=== PATIENT | male | born 1940 | race Caucasian/White ===

== ENCOUNTER 2017-07-31 09:43 | Emergency (ER) | payer MEDICARE, MEDICAID ==
[~2017-07-31] VITALS: Ht 170.2 cm; Wt 70.0 kg
[2017-07-31] MEDS ORDERED: ONDANSETRON HCL 4MG/2ML VIAL IV STA (10:29)
[2017-07-31] MEDS ORDERED: MORPHINE SULFATE 4 MG/ML CPJ (NOT FOR IM USE) IV STA (10:29)
[2017-07-31 11:07] LABS: BASOPHILS % 0.4 % (0.0-2.0); EOSINOPHILS % 0.1 % (0.0-5.0); HEMATOCRIT. 44.1 % (42.0-52.0); HEMOGLOBIN. 14.9 g/dL (14.0-18.0); LYMPHOCYTES % 8.6 % (20.0-50.0); MEAN CORPUSCULAR HEMOGLOBIN 31.8 pg (28.0-32.0); MEAN CORPUSCULAR VOLUME 94.5 fL (80.0-94.0); MEAN PLATELET VOLUME 7.6 fl (7.4-10.4); MONOCYTES % 3.4 % (2.0-8.0); NEUTROPHILS % 87.5 % (40.0-76.0); PLATELET 195 x1000/uL (130-400); RED BLOOD CELL COUNT 4.67 mill/uL (4.7-6.1); RED CELL DISTRIBUTION WIDTH 13.8 % (11.6-14.6)
[2017-07-31] MEDS ORDERED: IOHEXOL-350 100 ML BOTTLE ONE (11:13)
[2017-07-31] MEDS ORDERED: SODIUM CHLORIDE 0.9% 10ML VIAL ONE (11:13)
[2017-07-31 11:15] LABS: CHLORIDE 105 mEq/L (98-107)
[2017-07-31 11:19] LABS: INR 1.5; PROTHROMBIN TIME 15.9 sec (9.4-11.6)
[2017-07-31 11:24] LABS: CARBON DIOXIDE 26 mEq/L (21-32)
[2017-07-31] MEDS ORDERED: ONDANSETRON HCL 4MG/2ML VIAL IV ONE (12:30)
[2017-07-31 16:03] LABS: CLARITY URINE CLOUDY (CLEAR); COLOR URINE YELLOW (YELLOW); GLUCOSE URINE NEGATIVE (NEGATIVE); KETONES URINE 3+ (NEGATIVE); LEUKOCYTE ESTERASE URINE NEGATIVE (NEGATIVE); NITRITE URINE NEGATIVE (NEGATIVE); OCCULT BLOOD URINE TRACE (NEGATIVE); PROTEIN URINE 1+ (NEGATIVE); SPECIFIC GRAVITY URINE 1.035 (1.005-1.030); UROBILINOGEN URINE 0.2 E.U./dL (0.2-1.0)
[2017-07-31] MEDS ORDERED: HYDROCODONE/ACETAMINOPHEN 5/325MG TABLET PO ONE (17:15)
[2017-07-31 18:30] VITALS: BP 142/98
[2017-07-31] MEDS: PROMETHAZINE HCL 25MG TABLET PO PRN (19:35)
== END 2017-07-31 19:44 | disposition home or self-care (01) ==
LOC: ER 10:20
DX: R10.31 Right lower quadrant pain (principal); R11.2 Nausea with vomiting, unspecified; R19.7 Diarrhea, unspecified; I10 Essential (primary) hypertension; E11.9 Type 2 diabetes mellitus without complications; Z88.6 Allergy status to analgesic agent
CPT/HCPCS: 36415; 74177; 80053; 81001; 83690; 85025; 85610; 96374; 96375; 96376; 99285; A4216; J2270; J2405; J7030; Q9967

== ENCOUNTER 2019-02-10 11:48 | Inpatient (IN) | payer MEDICARE, MEDICAID ==
[~2019-02-10] VITALS: Ht 157.5 cm; Wt 84.8 kg
[2019-02-10 12:06] VITALS: BP 130/79
[2019-02-10] MEDS ORDERED: [UNRECOGNIZED DRUG - CODE] MC (12:18)
[2019-02-10] MEDS ORDERED: LIDO700A30 TP (12:18)
[2019-02-10] MEDS ORDERED: SENN-170 MT (12:18)
[2019-02-10] MEDS ORDERED: RIVA1TAB PO (12:18)
[2019-02-10] MEDS ORDERED: GABA-529 MT (12:18)
[2019-02-10] MEDS ORDERED: TAMS0.4C31 MT (12:18)
[2019-02-10] MEDS ORDERED: [UNRECOGNIZED DRUG - CODE] SL (12:18)
[2019-02-10] MEDS ORDERED: FINA1TAB18 MT (12:18)
[2019-02-10] MEDS ORDERED: METF-815 MT (12:18)
[2019-02-10] MEDS ORDERED: ACET-2178 MT (12:18)
[2019-02-10] MEDS ORDERED: ASCO125T PO (12:18)
[2019-02-10] MEDS ORDERED: PANT20TA3 MT (12:18)
[2019-02-10] MEDS ORDERED: CYAN500T47 MT (12:18)
[2019-02-10] MEDS ORDERED: BENZ0.5T3 MT (12:18)
[2019-02-10 12:26] VITALS: BP 129/76
[2019-02-10] MEDS ORDERED: IPRATROPIUM/ALBUTEROL 0.5-3(2.5)MG/3ML NEB INH PRN (13:00)
[2019-02-10] MEDS ORDERED: ACETAMINOPHEN 650MG/20.3ML UDC GT PRN (13:00)
[2019-02-10] MEDS ORDERED: NA PHOS,M-B/NA PHOS,DI-BA ENEMA 118ML PR PRN (13:00)
[2019-02-10] MEDS ORDERED: DEXTROSE 50% WATER 50ML SYRINGE IV PRN (13:00)
[2019-02-10] MEDS ORDERED: DIPHENHYDRAMINE 50MG/ML VIAL IV PRN (13:00)
[2019-02-10] MEDS ORDERED: ACETAMINOPHEN 650MG SUPP PR PRN (13:00)
[2019-02-10] MEDS ORDERED: MAGNESIUM/ALUMINUM HYDROXIDE/SIMETHICONE 30ML UDC PO PRN (13:00)
[2019-02-10] MEDS ORDERED: CLONIDINE 0.1MG TABLET PO PRN (13:00)
[2019-02-10] MEDS ORDERED: ONDANSETRON HCL 4MG/2ML INJ IV PRN (13:00)
[2019-02-10 13:20] LABS: BASOPHILS % 0.8 % (0.0-2.0); EOSINOPHILS % 3.1 % (0.0-5.0); HEMATOCRIT. 42.5 % (42.0-52.0); HEMOGLOBIN. 14.9 g/dL (14.0-18.0); LYMPHOCYTES % 22.7 % (20.0-50.0); MEAN CORPUSCULAR HEMOGLOBIN 33.9 pg (28.0-32.0); MEAN CORPUSCULAR VOLUME 96.8 fL (80.0-94.0); MEAN PLATELET VOLUME 7.2 fl (7.4-10.4); MONOCYTES % 9.3 % (2.0-8.0); NEUTROPHILS % 64.1 % (40.0-76.0); PLATELET 226 x1000/uL (130-400); RED BLOOD CELL COUNT 4.39 mill/uL (4.7-6.1); RED CELL DISTRIBUTION WIDTH 13.2 % (11.6-14.6)
[2019-02-10 13:28] LABS: CHLORIDE 108 mEq/L (98-107)
[2019-02-10] MEDS: FINASTERIDE 5MG TABLET PO SCH (14:34)
[2019-02-10] MEDS: PANTOPRAZOLE 40MG DR TABLET PO SCH (14:34)
[2019-02-10] MEDS: TAMSULOSIN HCL 0.4MG SR CAPSULE PO SCH (14:34)
[2019-02-10] MEDS: BENZTROPINE MESYLATE 0.5MG TABLET PO SCH ×2 (14:35→17:36)
[2019-02-10] MEDS: SODIUM CHLORIDE 0.9% INJ 3ML FLUSH IVF SCH ×2 (14:35→20:11)
[2019-02-10] MEDS: SENNOSIDES 8.6MG TABLET PO SCH ×2 (14:35→17:36)
[2019-02-10 15:42] VITALS: BP 142/64
[2019-02-10] MEDS: BLOOD SUGAR DIAGNOSTIC STRIP TEST SCH ×2 (16:45→20:51)
[2019-02-10] MEDS: INSULIN LISPRO 100 UNITS/ML SUBCUT SCH ×2 (16:45→20:52)
[2019-02-10] MEDS ORDERED: RIVAROXABAN 20 MG TABLET PO SCH (17:00)
[2019-02-10 17:15] LABS: CLARITY URINE CLEAR (CLEAR); COLOR URINE YELLOW (YELLOW); KETONES URINE NEGATIVE (NEGATIVE); LEUKOCYTE ESTERASE URINE NEGATIVE (NEGATIVE); NITRITE URINE NEGATIVE (NEGATIVE); OCCULT BLOOD URINE NEGATIVE (NEGATIVE); PROTEIN URINE NEGATIVE (NEGATIVE); SPECIFIC GRAVITY URINE 1.015 (1.005-1.030); UROBILINOGEN URINE 0.2 E.U./dL (0.2-1.0)
[2019-02-10 17:31] LABS: *AMPHETAMINES SCREEN URINE NEGATIVE (NEGATIVE); *BARBITURATES SCREEN URINE NEGATIVE (NEGATIVE); *BENZODIAZEPINES SCREEN URINE NEGATIVE (NEGATIVE); *COCAINE SCREEN URINE NEGATIVE (NEGATIVE)
[2019-02-10 17:32] LABS: CANNABINOID URINE SCREEN NEGATIVE (NEGATIVE); METHADONE URINE SCREEN NEGATIVE (NEGATIVE); OPIATES URINE SCREEN NEGATIVE (NEGATIVE); PHENCYCLIDINE URINE SCREEN NEGATIVE (NEGATIVE)
[2019-02-10] MEDS ORDERED: METFORMIN HCL 500MG TABLET PO SCH (17:50)
[2019-02-10] MEDS: HYDROCODONE/ACETAMINOPHEN 5/325MG TABLET PO PRN (18:00)
[2019-02-10 20:00] VITALS: BP 106/71
[2019-02-10] MEDS: IPRATROPIUM/ALBUTEROL 0.5-3(2.5)MG/3ML NEB INH SCH (21:19)
[2019-02-11] VITALS: BP 110/70
[2019-02-11] MEDS: IPRATROPIUM/ALBUTEROL 0.5-3(2.5)MG/3ML NEB INH SCH ×4 (01:20→20:30)
[2019-02-11 04:00] VITALS: BP 94/59
[2019-02-11] MEDS: HYDROCODONE/ACETAMINOPHEN 5/325MG TABLET PO PRN (04:40)
[2019-02-11] MEDS: SODIUM CHLORIDE 0.9% INJ 3ML FLUSH IVF SCH ×3 (04:40→22:02)
[2019-02-11 06:16] LABS: BASOPHILS % 0.9 % (0.0-2.0); EOSINOPHILS % 2.7 % (0.0-5.0); HEMATOCRIT. 42.2 % (42.0-52.0); HEMOGLOBIN. 14.6 g/dL (14.0-18.0); LYMPHOCYTES % 24.8 % (20.0-50.0); MEAN CORPUSCULAR HEMOGLOBIN 33.7 pg (28.0-32.0); MEAN CORPUSCULAR VOLUME 97.7 fL (80.0-94.0); NEUTROPHILS % 61.6 % (40.0-76.0); PLATELET 202 x1000/uL (130-400); RED BLOOD CELL COUNT 4.32 mill/uL (4.7-6.1); RED CELL DISTRIBUTION WIDTH 13.7 % (11.6-14.6)
[2019-02-11 06:43] LABS: CHLORIDE 109 mEq/L (98-107)
[2019-02-11 06:57] LABS: LDL CHOLESTEROL 105 mg/dL (5-100)
[2019-02-11 06:59] LABS: HDL CHOLESTEROL 54 mg/dL (40-59)
[2019-02-11] MEDS: BLOOD SUGAR DIAGNOSTIC STRIP TEST SCH ×4 (07:20→20:04)
[2019-02-11] MEDS: PANTOPRAZOLE 40MG DR TABLET PO SCH (07:20)
[2019-02-11] MEDS: INSULIN LISPRO 100 UNITS/ML SUBCUT SCH ×4 (07:50→21:00)
[2019-02-11 08:00] VITALS: BP 119/64
[2019-02-11] MEDS: BENZTROPINE MESYLATE 0.5MG TABLET PO SCH ×2 (08:40→16:55)
[2019-02-11] MEDS: FINASTERIDE 5MG TABLET PO SCH (08:40)
[2019-02-11] MEDS: METFORMIN HCL 500MG TABLET PO SCH ×2 (08:40→16:55)
[2019-02-11] MEDS: TAMSULOSIN HCL 0.4MG SR CAPSULE PO SCH (08:41)
[2019-02-11] MEDS: SENNOSIDES 8.6MG TABLET PO SCH ×2 (08:41→16:54)
[2019-02-11 12:00] VITALS: BP 110/57
[2019-02-11 16:00] VITALS: BP 117/66
[2019-02-11] MEDS: RIVAROXABAN 20 MG TABLET PO SCH (16:55)
[2019-02-11] MEDS: ACETAMINOPHEN 325MG TABLET PO PRN (19:53)
[2019-02-11] MEDS: FUROSEMIDE 40MG/4ML VIAL IVP SCH (23:58)
[2019-02-12] VITALS: BP 112/68
[2019-02-12] MEDS: IPRATROPIUM/ALBUTEROL 0.5-3(2.5)MG/3ML NEB INH SCH ×3 (01:24→21:12)
[2019-02-12 04:00] VITALS: BP 112/66
[2019-02-12] MEDS: SODIUM CHLORIDE 0.9% INJ 3ML FLUSH IVF SCH ×3 (06:04→21:02)
[2019-02-12] MEDS: BLOOD SUGAR DIAGNOSTIC STRIP TEST SCH ×4 (06:11→20:00)
[2019-02-12] MEDS: ACETAMINOPHEN 325MG TABLET PO PRN (06:12)
[2019-02-12] MEDS: PANTOPRAZOLE 40MG DR TABLET PO SCH (06:12)
[2019-02-12] MEDS: INSULIN LISPRO 100 UNITS/ML SUBCUT SCH ×4 (06:24→20:02)
[2019-02-12 08:00] VITALS: BP 108/62
[2019-02-12] MEDS: SENNOSIDES 8.6MG TABLET PO SCH ×2 (08:41→17:37)
[2019-02-12] MEDS: METFORMIN HCL 500MG TABLET PO SCH ×2 (08:41→17:37)
[2019-02-12] MEDS: FUROSEMIDE 40MG/4ML VIAL IVP SCH (08:41)
[2019-02-12] MEDS: FINASTERIDE 5MG TABLET PO SCH (08:42)
[2019-02-12] MEDS: BENZTROPINE MESYLATE 0.5MG TABLET PO SCH ×2 (08:42→17:37)
[2019-02-12] MEDS: TAMSULOSIN HCL 0.4MG SR CAPSULE PO SCH (08:45)
[2019-02-12] MEDS ORDERED: MEDICATION NOT ON FORMULARY EA (Gabapentin 1 CAP) MT SCH (11:15)
[2019-02-12 12:00] VITALS: BP 109/64
[2019-02-12] MEDS: GABAPENTIN 100MG CAPSULE PO SCH ×2 (12:31→17:40)
[2019-02-12 12:40] LABS: BASOPHILS % 0.9 % (0.0-2.0); EOSINOPHILS % 1.8 % (0.0-5.0); LYMPHOCYTES % 18.5 % (20.0-50.0); MEAN CORPUSCULAR HEMOGLOBIN 33.9 pg (28.0-32.0); MEAN CORPUSCULAR VOLUME 97.3 fL (80.0-94.0); MONOCYTES % 11.1 % (2.0-8.0); NEUTROPHILS % 67.7 % (40.0-76.0); PLATELET 225 x1000/uL (130-400); RED BLOOD CELL COUNT 4.42 mill/uL (4.7-6.1); RED CELL DISTRIBUTION WIDTH 13.6 % (11.6-14.6)
[2019-02-12 12:47] LABS: CHLORIDE 109 mEq/L (98-107)
[2019-02-12 16:00] VITALS: BP 103/67
[2019-02-12] MEDS: RIVAROXABAN 20 MG TABLET PO SCH (17:37)
[2019-02-12 20:00] VITALS: BP 105/65
[2019-02-13] VITALS (7 sets, daily range): BP systolic 101–113; BP diastolic 59–74
[2019-02-13] MEDS: IPRATROPIUM/ALBUTEROL 0.5-3(2.5)MG/3ML NEB INH SCH ×4 (01:28→20:02)
[2019-02-13] MEDS: SODIUM CHLORIDE 0.9% INJ 3ML FLUSH IVF SCH ×3 (06:00→21:54)
[2019-02-13] MEDS: ACETAMINOPHEN 325MG TABLET PO PRN (06:17)
[2019-02-13] MEDS: BLOOD SUGAR DIAGNOSTIC STRIP TEST SCH ×4 (06:48→21:54)
[2019-02-13] MEDS: INSULIN LISPRO 100 UNITS/ML SUBCUT SCH ×4 (06:48→21:00)
[2019-02-13] MEDS ORDERED: FURO-151 MT (07:48)
[2019-02-13] MEDS: FUROSEMIDE 40MG/4ML VIAL IVP SCH (09:00)
[2019-02-13] MEDS ORDERED: FAMOTIDINE 20MG TABLET PO SCH (09:00)
[2019-02-13] MEDS: BENZTROPINE MESYLATE 0.5MG TABLET PO SCH ×2 (09:18→18:29)
[2019-02-13] MEDS: METFORMIN HCL 500MG TABLET PO SCH ×2 (09:19→18:29)
[2019-02-13] MEDS: TAMSULOSIN HCL 0.4MG SR CAPSULE PO SCH (09:20)
[2019-02-13] MEDS: SENNOSIDES 8.6MG TABLET PO SCH ×2 (09:20→18:29)
[2019-02-13] MEDS: GABAPENTIN 100MG CAPSULE PO SCH ×3 (09:20→18:29)
[2019-02-13] MEDS: FINASTERIDE 5MG TABLET PO SCH (09:33)
[2019-02-13 10:10] LABS: CHLORIDE 110 mEq/L (98-107)
[2019-02-13 10:13] LABS: BASOPHILS % 0.7 % (0.0-2.0); EOSINOPHILS % 2.7 % (0.0-5.0); HEMOGLOBIN. 14.9 g/dL (14.0-18.0); LYMPHOCYTES % 21.7 % (20.0-50.0); MEAN CORPUSCULAR HEMOGLOBIN 33.8 pg (28.0-32.0); MEAN CORPUSCULAR VOLUME 97.6 fL (80.0-94.0); MEAN PLATELET VOLUME 7.3 fl (7.4-10.4); MONOCYTES % 8.2 % (2.0-8.0); NEUTROPHILS % 66.7 % (40.0-76.0); PLATELET 217 x1000/uL (130-400); RED BLOOD CELL COUNT 4.41 mill/uL (4.7-6.1); RED CELL DISTRIBUTION WIDTH 13.5 % (11.6-14.6)
[2019-02-13] MEDS: RIVAROXABAN 20 MG TABLET PO SCH (18:29)
== END 2019-02-13 23:00 | DRG 292 ==
LOC: 6EST 11:48
PROVIDERS: ADMIT Family Medicine; ATTEND Family Medicine
DX: I11.0 Hypertensive heart disease with heart failure (principal); L97.929 Non-pressure chronic ulcer of unspecified part of left lower leg with unspecified severity; Z66 Do not resuscitate; E66.9 Obesity, unspecified; Z68.32 Body mass index [BMI] 32.0-32.9, adult; G20 Parkinson's disease; N40.0 Benign prostatic hyperplasia without lower urinary tract symptoms; Z74.01 Bed confinement status; I50.33 Acute on chronic diastolic (congestive) heart failure; E11.621 Type 2 diabetes mellitus with foot ulcer
CPT/HCPCS: 36415; 71045; 80061; 80305; 82962; 87804; 93306; 93970; 94640; 97162; 97530; J1940; J7620

== ENCOUNTER 2019-11-08 18:55 | Emergency (ER) | payer MEDICAID, MEDICARE ==
[~2019-11-08] VITALS: Ht 167.6 cm; Wt 91.0 kg
[~2019-11-08 18:55] MED LIST: ASCO125T PO; BENZ0.5T43 MT; CYAN500T47 MT; FINA1TAB18 MT; FURO-151 MT; GABA-529 MT; LIDO700A30 TP; METF-815 MT; PANT20TA3 MT; RIVA1TAB PO; SENN-170 MT; TAMS0.4C31 MT; TOPUD MT
[2019-11-08] MEDS ORDERED: CLOPIDOGREL 75MG TABLET PO ONE (19:15)
[2019-11-08 19:42] LABS: BASOPHILS % 1.1 % (0.0-2.0); EOSINOPHILS % 4.7 % (0.0-5.0); HEMATOCRIT. 42.8 % (42.0-52.0); HEMOGLOBIN. 14.5 g/dL (14.0-18.0); LYMPHOCYTES % 33.8 % (20.0-50.0); MEAN CORPUSCULAR HEMOGLOBIN 32.1 pg (28.0-32.0); MEAN CORPUSCULAR VOLUME 94.9 fL (80.0-94.0); MEAN PLATELET VOLUME 7.4 fl (7.4-10.4); MONOCYTES % 10.2 % (2.0-8.0); NEUTROPHILS % 50.2 % (40.0-76.0); PLATELET 212 x1000/uL (130-400); RED BLOOD CELL COUNT 4.51 mill/uL (4.7-6.1); RED CELL DISTRIBUTION WIDTH 13.8 % (11.6-14.6)
[2019-11-08 19:47] LABS: CHLORIDE 106 mEq/L (98-107)
[2019-11-08] MEDS ORDERED: FAMOTIDINE 20MG TABLET PO ONE (20:15)
[2019-11-08 22:33] VITALS: BP 147/87
== END 2019-11-08 22:34 | disposition home or self-care (01) ==
LOC: ER 18:55
DX: R53.1 Weakness (principal); I10 Essential (primary) hypertension; E11.9 Type 2 diabetes mellitus without complications; G20 Parkinson's disease; Z79.84 Long term (current) use of oral hypoglycemic drugs; Z88.6 Allergy status to analgesic agent
CPT/HCPCS: 36415; 71045; 80053; 83880; 84484; 85025; 93005; 99284

== ENCOUNTER 2020-12-30 14:49 | Inpatient (IN) | payer MEDICARE, MEDICAID ==
[~2020-12-30] VITALS: Ht 152.4 cm; Wt 73.9 kg
[~2020-12-30 14:49] MED LIST changes: -METF-815 MT; +METF-873 MT; +PANT20TA17 MT; -PANT20TA3 MT; -SENN-170 MT; +SENN-257 MT
[2020-12-30] MEDS ORDERED: VANCOMYCIN 1 G PREMIX 200 ML IV ONE (15:45)
[2020-12-30] MEDS ORDERED: SODIUM CHLORIDE 0.9% 1000ML BAG (SEPSIS BOLUS) IV ONE ×2 (15:45→20:00)
[2020-12-30] MEDS ORDERED: PIPERACILLIN/TAZ 3.375G PREMIX 50 ML IV ONE (15:45)
[2020-12-30 15:59] LABS: CHLORIDE 105 mEq/L (98-107)
[2020-12-30 16:05] LABS: ETHANOL BLOOD < 10 mg/dL
[2020-12-30 16:09] LABS: CREATINE KINASE 613 IU/L (39-308)
[2020-12-30 16:12] LABS: D-DIMER 0.21 mg/L FEU (<0.50); INR 1.1; PROTHROMBIN TIME 11.4 sec (9.6-11.0)
[2020-12-30 16:32] LABS: BASOPHILS % 0.6 % (0.0-2.0); EOSINOPHILS % 0.2 % (0.0-5.0); HEMATOCRIT. 49.6 % (42.0-52.0); HEMOGLOBIN. 16.5 g/dL (14.0-18.0); LYMPHOCYTES % 10.3 % (20.0-50.0); MEAN CORPUSCULAR HEMOGLOBIN 32.5 pg (28.0-32.0); MEAN CORPUSCULAR VOLUME 98.1 fL (80.0-94.0); MEAN PLATELET VOLUME 9.3 fl (7.4-10.4); MONOCYTES % 6.7 % (2.0-8.0); NEUTROPHILS % 82.2 % (40.0-76.0); PLATELET 236 x1000/uL (130-400); RED BLOOD CELL COUNT 5.06 mill/uL (4.7-6.1); RED CELL DISTRIBUTION WIDTH 13.5 % (11.6-14.6)
[2020-12-30 16:40] LABS: CLARITY URINE CLEAR (CLEAR); COLOR URINE YELLOW (YELLOW); KETONES URINE 1+ (NEGATIVE); LEUKOCYTE ESTERASE URINE NEGATIVE (NEGATIVE); NITRITE URINE NEGATIVE (NEGATIVE); OCCULT BLOOD URINE 2+ (NEGATIVE); PROTEIN URINE TRACE (NEGATIVE); SPECIFIC GRAVITY URINE 1.035 (1.005-1.030); UROBILINOGEN URINE 0.2 E.U./dL (0.2-1.0)
[2020-12-30 17:07] LABS: *BARBITURATES SCREEN URINE NEGATIVE (NEGATIVE); *BENZODIAZEPINES SCREEN URINE NEGATIVE (NEGATIVE); *COCAINE SCREEN URINE NEGATIVE (NEGATIVE); METHADONE URINE SCREEN NEGATIVE (NEGATIVE); OPIATES URINE SCREEN NEGATIVE (NEGATIVE)
[2020-12-30 17:08] LABS: CANNABINOID URINE SCREEN NEGATIVE (NEGATIVE); PHENCYCLIDINE URINE SCREEN NEGATIVE (NEGATIVE)
[2020-12-30 17:14] LABS: *AMPHETAMINES SCREEN URINE NEGATIVE (NEGATIVE)
[2020-12-30] MEDS ORDERED: SODIUM CHLORIDE 0.9% 1,000 ML IV ONE ×2 (18:00→20:00)
[2020-12-30] MEDS ORDERED: INSULIN REGULAR (HUMULIN R) 300UNITS/3ML VIAL SUBCUT ONE ×2 (18:45→19:15)
[2020-12-30] MEDS ORDERED: LEVOFLOXACIN 500MG PREMIX 100 ML IV NR (20:00)
[2020-12-30] MEDS ORDERED: ONDANSETRON HCL 4MG/2ML INJ IV PRN (20:00)
[2020-12-30] MEDS ORDERED: IPRATROPIUM/ALBUTEROL 0.5-3(2.5)MG/3ML NEB NEB PRN (20:00)
[2020-12-30] MEDS ORDERED: DOCUSATE SODIUM 100MG CAPSULE PO PRN (20:00)
[2020-12-30] MEDS ORDERED: NITROGLYCERIN 0.4MG TABLET SL SL PRN (20:00)
[2020-12-30] MEDS ORDERED: CLONIDINE 0.1MG TABLET PO PRN (20:00)
[2020-12-30] MEDS ORDERED: ENOXAPARIN 40MG/0.4ML SYR SUBCUT SCH (20:00)
[2020-12-30] MEDS ORDERED: DEXTROSE 50% WATER 50ML SYRINGE IV PRN (20:00)
[2020-12-30] MEDS ORDERED: MAGNESIUM/ALUMINUM HYDROXIDE/SIMETHICONE 30ML UDC PO PRN (20:00)
[2020-12-30] MEDS ORDERED: ACETAMINOPHEN 325MG TABLET PO PRN ×2 (20:00)
[2020-12-30] MEDS ORDERED: DILTIAZEM HCL 5MG/ML 5ML VIAL IV NR (20:00)
[2020-12-30] MEDS ORDERED: GUAIFENESIN 200MG/10ML SUGAR FREE UDC PO PRN (20:00)
[2020-12-30] MEDS ORDERED: KETOROLAC 15MG/ML VIAL IV PRN (20:00)
[2020-12-30] MEDS ORDERED: SODIUM CHLORIDE 0.9% IV SCH (20:45)
[2020-12-30] MEDS: BLOOD SUGAR DIAGNOSTIC STRIP TEST SCH (20:58)
[2020-12-30] MEDS ORDERED: ZOLPIDEM TARTRATE 5MG TABLET PO PRN (21:00)
[2020-12-30] MEDS ORDERED: ENOXAPARIN 30MG/0.3ML SYR SUBCUT SCH (21:00)
[2020-12-30] MEDS: INSULIN LISPRO 100 UNITS/ML SUBCUT SCH (21:12)
[2020-12-30] MEDS: FAMOTIDINE 20MG TABLET PO SCH (21:12)
[2020-12-30] MEDS: ASCORBIC ACID 500 MG TABLET PO SCH (21:12)
[2020-12-30 21:17] LABS: VITAMIN B12 SERUM 863 pg/mL (211-911)
[2020-12-30 21:25] LABS: FOLIC ACID (FOLATE) SERUM > 20.00 ng/mL (>5.38)
[2020-12-30] MEDS ORDERED: PIPERACILLIN/TAZ 3.375G PREMIX 50 ML IV SCH (22:00)
[2020-12-30] MEDS: INSULIN GLARGINE UD 100 UNITS/ML SYR SUBCUT SCH (22:29)
[2020-12-30] MEDS: SODIUM CHLORIDE 0.9% 1,000 ML IV SCH (22:29)
[2020-12-30] MEDS: DILTIAZEM HCL 30MG TABLET PO SCH (23:52)
[2020-12-31 00:31] VITALS: BP 119/70
[2020-12-31 04:00] VITALS: BP 119/66
[2020-12-31] MEDS: DILTIAZEM HCL 30MG TABLET PO SCH ×3 (05:09→17:55)
[2020-12-31] MEDS: SODIUM CHLORIDE 0.9% 1,000 ML IV SCH ×2 (05:10→17:42)
[2020-12-31] MEDS ORDERED: PIPERACILLIN/TAZOBACTAM 3.375 G in DEXT 5% WATER 100 ML IV SCH (06:00)
[2020-12-31] MEDS: BLOOD SUGAR DIAGNOSTIC STRIP TEST SCH ×4 (06:41→21:25)
[2020-12-31] MEDS: INSULIN LISPRO 100 UNITS/ML SUBCUT SCH ×7 (07:40→21:00)
[2020-12-31 08:00] VITALS: BP 141/63
[2020-12-31] MEDS: CHOLECALCIFEROL (D3) 1000 UNIT TABLET PO SCH (08:55)
[2020-12-31] MEDS: ASCORBIC ACID 500 MG TABLET PO SCH ×2 (08:55→21:00)
[2020-12-31] MEDS: ZINC SULFATE 220 MG ( 50 ) CAPSULE PO SCH (08:56)
[2020-12-31] MEDS ORDERED: ASPIRIN 325MG EC TABLET PO SCH (09:00)
[2020-12-31 11:29] LABS: BASOPHILS % 0.7 % (0.0-2.0); EOSINOPHILS % 2.4 % (0.0-5.0); HEMATOCRIT. 41.8 % (42.0-52.0); HEMOGLOBIN. 14.2 g/dL (14.0-18.0); LYMPHOCYTES % 20.5 % (20.0-50.0); MEAN CORPUSCULAR HEMOGLOBIN 32.4 pg (28.0-32.0); MEAN CORPUSCULAR VOLUME 95.5 fL (80.0-94.0); MEAN PLATELET VOLUME 8.5 fl (7.4-10.4); MONOCYTES % 8.9 % (2.0-8.0); NEUTROPHILS % 67.5 % (40.0-76.0); PLATELET 187 x1000/uL (130-400); RED BLOOD CELL COUNT 4.38 mill/uL (4.7-6.1); RED CELL DISTRIBUTION WIDTH 13.3 % (11.6-14.6)
[2020-12-31 11:51] LABS: CHLORIDE 123 mEq/L (98-107)
[2020-12-31 11:56] LABS: PHOSPHORUS 1.6 mg/dL (2.5-4.9)
[2020-12-31 11:59] LABS: CREATINE KINASE 814 IU/L (39-308)
[2020-12-31 12:00] VITALS: BP 126/81
[2020-12-31] MEDS: PIPERACILLIN/TAZOBACTAM 3.375 G in DEXT 5% WATER 100 ML IV SCH ×2 (12:58→17:55)
[2020-12-31] MEDS: VANCOMYCIN 1 G PREMIX 200 ML IV SCH (13:57)
[2020-12-31] MEDS ORDERED: VANCOMYCIN 750 MG PREMIX 150 ML IV SCH ×2 (14:00)
[2020-12-31 16:00] VITALS: BP 154/87
[2020-12-31] MEDS: LEVOFLOXACIN 750MG PREMIX 150 ML IV SCH (17:42)
[2020-12-31] MEDS: FAMOTIDINE 20MG TABLET PO SCH (21:00)
[2020-12-31 21:04] VITALS: BP 139/79
[2020-12-31] MEDS: ENOXAPARIN 40MG/0.4ML SYR SUBCUT SCH (21:22)
[2020-12-31] MEDS: INSULIN GLARGINE UD 100 UNITS/ML SYR SUBCUT SCH (22:00)
[2021-01-01] MEDS: SODIUM CHLORIDE 0.9% 1,000 ML IV SCH (03:00)
[2021-01-01 05:00] VITALS: BP 145/82
[2021-01-01] MEDS: DILTIAZEM HCL 30MG TABLET PO SCH ×5 (06:00→23:36)
[2021-01-01] MEDS: PIPERACILLIN/TAZOBACTAM 3.375 G in DEXT 5% WATER 100 ML IV SCH ×4 (06:00→17:34)
[2021-01-01 06:56] LABS: BASOPHILS % 0.8 % (0.0-2.0); EOSINOPHILS % 3.6 % (0.0-5.0); HEMOGLOBIN. 13.8 g/dL (14.0-18.0); LYMPHOCYTES % 30.3 % (20.0-50.0); MEAN CORPUSCULAR HEMOGLOBIN 32.1 pg (28.0-32.0); MEAN CORPUSCULAR VOLUME 95.6 fL (80.0-94.0); MONOCYTES % 7.6 % (2.0-8.0); NEUTROPHILS % 57.7 % (40.0-76.0); PLATELET 169 x1000/uL (130-400); RED BLOOD CELL COUNT 4.29 mill/uL (4.7-6.1); RED CELL DISTRIBUTION WIDTH 13.4 % (11.6-14.6)
[2021-01-01 07:04] LABS: CHLORIDE 118 mEq/L (98-107)
[2021-01-01] MEDS: INSULIN LISPRO 100 UNITS/ML SUBCUT SCH ×7 (07:10→20:49)
[2021-01-01 07:21] LABS: PHOSPHORUS 1.7 mg/dL (2.5-4.9)
[2021-01-01] MEDS: BLOOD SUGAR DIAGNOSTIC STRIP TEST SCH ×4 (07:33→20:39)
[2021-01-01 08:00] VITALS: BP 137/81
[2021-01-01] MEDS: ASCORBIC ACID 500 MG TABLET PO SCH ×2 (08:36→20:38)
[2021-01-01] MEDS: ZINC SULFATE 220 MG ( 50 ) CAPSULE PO SCH (08:36)
[2021-01-01] MEDS: CHOLECALCIFEROL (D3) 1000 UNIT TABLET PO SCH (08:36)
[2021-01-01] MEDS ORDERED: LEVOFLOXACIN 500MG PREMIX 100 ML IV SCH (09:00)
[2021-01-01] MEDS: SODIUM CHLORIDE 0.45% 1,000 ML IV SCH ×2 (10:17→23:35)
[2021-01-01] MEDS: LEVOFLOXACIN 750MG PREMIX 150 ML IV SCH (10:21)
[2021-01-01 12:00] VITALS: BP 111/68
[2021-01-01] MEDS: VANCOMYCIN 1 G PREMIX 200 ML IV SCH (14:09)
[2021-01-01 16:00] VITALS: BP 110/71
[2021-01-01 20:00] VITALS: BP 127/70
[2021-01-01] MEDS: ENOXAPARIN 40MG/0.4ML SYR SUBCUT SCH (20:38)
[2021-01-01] MEDS: FAMOTIDINE 20MG TABLET PO SCH (20:44)
[2021-01-01 21:31] VITALS: BP 127/70
[2021-01-01] MEDS: INSULIN GLARGINE UD 100 UNITS/ML SYR SUBCUT SCH (23:34)
[2021-01-02] VITALS: BP 117/69
[2021-01-02] MEDS: PIPERACILLIN/TAZOBACTAM 3.375 G in DEXT 5% WATER 100 ML IV SCH ×4 (00:59→17:55)
[2021-01-02 01:28] VITALS: BP 117/69
[2021-01-02 04:00] VITALS: BP 131/73
[2021-01-02] MEDS: DILTIAZEM HCL 30MG TABLET PO SCH ×3 (05:30→17:43)
[2021-01-02] MEDS: INSULIN LISPRO 100 UNITS/ML SUBCUT SCH ×7 (05:32→20:21)
[2021-01-02] MEDS: BLOOD SUGAR DIAGNOSTIC STRIP TEST SCH ×4 (05:33→20:21)
[2021-01-02 07:29] LABS: CHLORIDE 111 mEq/L (98-107)
[2021-01-02] MEDS: ASCORBIC ACID 500 MG TABLET PO SCH ×2 (09:00→20:21)
[2021-01-02] MEDS: ZINC SULFATE 220 MG ( 50 ) CAPSULE PO SCH (09:00)
[2021-01-02] MEDS: CHOLECALCIFEROL (D3) 1000 UNIT TABLET PO SCH (09:00)
[2021-01-02] MEDS: SODIUM CHLORIDE 0.45% 1,000 ML IV SCH (13:01)
[2021-01-02] MEDS: VANCOMYCIN 1 G PREMIX 200 ML IV SCH (14:19)
[2021-01-02 16:00] VITALS: BP 138/82
[2021-01-02 20:00] VITALS: BP 142/72
[2021-01-02] MEDS: ENOXAPARIN 40MG/0.4ML SYR SUBCUT SCH (20:06)
[2021-01-02] MEDS: FAMOTIDINE 20MG TABLET PO SCH (20:20)
[2021-01-02] MEDS ORDERED: INSULIN GLARGINE UD 100 UNITS/ML SYR SUBCUT SCH (22:00)
[2021-01-03] VITALS: BP 124/78
[2021-01-03] MEDS: PIPERACILLIN/TAZOBACTAM 3.375 G in DEXT 5% WATER 100 ML IV SCH ×2 (00:20→05:22)
[2021-01-03] MEDS: VANCOMYCIN 1 G PREMIX 200 ML IV SCH (01:26)
[2021-01-03] MEDS: SODIUM CHLORIDE 0.45% 1,000 ML IV SCH (01:28)
[2021-01-03 04:00] VITALS: BP 101/69
[2021-01-03] MEDS: DILTIAZEM HCL 30MG TABLET PO SCH ×2 (05:20)
[2021-01-03] MEDS: INSULIN LISPRO 100 UNITS/ML SUBCUT SCH ×3 (05:21→12:10)
[2021-01-03] MEDS: BLOOD SUGAR DIAGNOSTIC STRIP TEST SCH ×2 (05:21→12:11)
[2021-01-03 08:00] VITALS: BP 104/65
[2021-01-03] MEDS: ZINC SULFATE 220 MG ( 50 ) CAPSULE PO SCH (09:25)
[2021-01-03] MEDS: CHOLECALCIFEROL (D3) 1000 UNIT TABLET PO SCH (09:25)
[2021-01-03] MEDS: ASCORBIC ACID 500 MG TABLET PO SCH (09:25)
[2021-01-03 10:07] VITALS: BP 104/65
[2021-01-03] MEDS ORDERED: LEVOFLOXACIN 250MG TABLET PO SCH (11:00)
[2021-01-03 12:00] VITALS: BP 135/69
== END 2021-01-03 12:15 | DRG 871 ==
LOC: ER 14:49 → 7WST 19:46 → SUPCPDRO 19:48 → EDBEDREQ 20:02 → EDBEDREQTM 20:02 → ENRESERV 21:16 → CANRESERV 21:16 → ENRESERV 22:41 → 8WST 12-31 10:44
PROVIDERS: ADMIT Internal Medicine; ATTEND Internal Medicine
DX: A41.9 Sepsis, unspecified organism (principal); E11.00 Type 2 diabetes mellitus with hyperosmolarity without nonketotic hyperglycemic-hyperosmolar coma (NKHHC); G92 Toxic encephalopathy; N17.0 Acute kidney failure with tubular necrosis; J18.9 Pneumonia, unspecified organism; R65.20 Severe sepsis without septic shock; I11.0 Hypertensive heart disease with heart failure; I48.91 Unspecified atrial fibrillation; G20 Parkinson's disease; Z86.16 Personal history of COVID-19; I50.9 Heart failure, unspecified; Z20.822 Contact with and (suspected) exposure to COVID-19; Y95 Nosocomial condition; N40.0 Benign prostatic hyperplasia without lower urinary tract symptoms; K21.9 Gastro-esophageal reflux disease without esophagitis; Z88.6 Allergy status to analgesic agent; Z79.899 Other long term (current) drug therapy
CPT/HCPCS: 36415; 71045; 80048; 80053; 80061; 80202; 80305; 80320; 81003; 82550; 82553; 82607; 82728; 82746; 82962; 83036; 83540; 83550; 83605; 83615; 83735; 83880; 84100; 84145; 84484; 85025; 85379; 85384; 86140; 86850; 86900; 93005; 93306; 93970; 99291; J1650; J1815; J1956; J2543; J3370; J3490; J7030; J7060; U0003; G0480

== ENCOUNTER 2022-06-16 00:10 | Inpatient (IN) | payer MEDICARE, MEDICAID ==
[~2022-06-16] VITALS: Ht 167.6 cm; Wt 80.3 kg
[2022-06-16] VITALS: BP 97/55
[2022-06-16 00:10] VITALS: BP 97/55
[2022-06-16] MEDS ORDERED: ONDANSETRON HCL 4MG TABLET PO PRN (01:15)
[2022-06-16] MEDS ORDERED: NALOXONE HCL 0.4 MG/ML 1ML VIAL IV PRN (01:15)
[2022-06-16] MEDS ORDERED: IPRATROPIUM/ALBUTEROL 0.5-3(2.5)MG/3ML NEB HHN PRN (01:15)
[2022-06-16] MEDS ORDERED: DEXTROSE 50% WATER 50ML SYRINGE IV PRN (01:30)
[2022-06-16] MEDS: BLOOD SUGAR DIAGNOSTIC STRIP TEST SCH ×4 (05:43→20:56)
[2022-06-16 06:19] LABS: CHLORIDE 101 mEq/L (98-107)
[2022-06-16 07:25] LABS: BASOPHILS % 0.7 % (0.0-2.0); EOSINOPHILS % 2.7 % (0.0-5.0); HEMOGLOBIN. 15.2 g/dL (14.0-18.0); LYMPHOCYTES % 25.3 % (20.0-50.0); MEAN CORPUSCULAR HEMOGLOBIN 32.2 pg (28.0-32.0); MEAN CORPUSCULAR VOLUME 93.4 fL (80.0-94.0); MEAN PLATELET VOLUME 8.8 fl (7.4-10.4); NEUTROPHILS % 63.3 % (40.0-76.0); PLATELET 176 x1000/uL (130-400); RED BLOOD CELL COUNT 4.71 mill/uL (4.7-6.1); RED CELL DISTRIBUTION WIDTH 13.5 % (11.6-14.6)
[2022-06-16 08:00] VITALS: BP 113/78
[2022-06-16] MEDS ORDERED: DOCUSATE SODIUM 100MG CAPSULE PO PRN (08:30)
[2022-06-16] MEDS ORDERED: ACETAMINOPHEN 325MG TABLET PO PRN ×2 (08:30)
[2022-06-16] MEDS ORDERED: CLONIDINE 0.1MG TABLET PO PRN (08:30)
[2022-06-16] MEDS: INSULIN LISPRO 100 UNITS/ML SUBCUT SCH ×4 (09:00→21:06)
[2022-06-16] MEDS ORDERED: INSULIN GLARGINE 100 UNITS/ML SUBCUT SCH ×3 (10:00)
[2022-06-16] MEDS: FAMOTIDINE 20MG TABLET PO SCH (10:12)
[2022-06-16] MEDS: THIAMINE HCL 100MG TABLET PO SCH (10:12)
[2022-06-16] MEDS: GABAPENTIN 100MG CAPSULE PO SCH ×3 (10:12→17:37)
[2022-06-16] MEDS: FOLIC ACID 1MG TABLET PO SCH (10:13)
[2022-06-16] MEDS: TAMSULOSIN HCL 0.4MG SR CAPSULE PO SCH (10:13)
[2022-06-16] MEDS: FINASTERIDE 5MG TABLET PO SCH (10:13)
[2022-06-16] MEDS: CYANOCOBALAMIN 1000MCG TABLET PO SCH (10:14)
[2022-06-16] MEDS: BENZTROPINE MESYLATE 0.5MG TABLET PO SCH ×2 (10:14→17:37)
[2022-06-16] MEDS: ASCORBIC ACID 250 MG TABLET PO SCH (10:15)
[2022-06-16] MEDS: FUROSEMIDE 40MG TABLET PO SCH (10:15)
[2022-06-16] MEDS: LIDOCAINE 5% PATCH TOP SCH (10:19)
[2022-06-16] MEDS: HYDROCODONE/ACETAMINOPHEN 5/325MG TABLET PO PRN (12:00)
[2022-06-16 16:27] LABS: BASOPHILS % 0.7 % (0.0-2.0); EOSINOPHILS % 1.3 % (0.0-5.0); HEMATOCRIT. 44.5 % (42.0-52.0); HEMOGLOBIN. 15.3 g/dL (14.0-18.0); MEAN CORPUSCULAR HEMOGLOBIN 32.3 pg (28.0-32.0); MEAN CORPUSCULAR VOLUME 93.8 fL (80.0-94.0); MONOCYTES % 8.5 % (2.0-8.0); NEUTROPHILS % 66.5 % (40.0-76.0); PLATELET 187 x1000/uL (130-400); RED BLOOD CELL COUNT 4.75 mill/uL (4.7-6.1); RED CELL DISTRIBUTION WIDTH 13.4 % (11.6-14.6)
[2022-06-16] MEDS: RIVAROXABAN 20 MG TABLET PO SCH (17:37)
[2022-06-16] MEDS ORDERED: BENZ0.5T43 PO (19:21)
[2022-06-16] MEDS ORDERED: GABA-529 PO (19:22)
[2022-06-16] MEDS ORDERED: MEMA10TA55 PO (19:24)
[2022-06-16] MEDS ORDERED: DILT30TA38 PO (19:24)
[2022-06-16] MEDS ORDERED: LOSA25TA26 PO (19:25)
[2022-06-16] MEDS ORDERED: APIX2.5T PO (19:25)
[2022-06-16] MEDS ORDERED: ARIP5TAB58 PO (19:26)
[2022-06-16] MEDS ORDERED: INSU100I28 SQ (19:26)
[2022-06-16] MEDS ORDERED: INSLIS SUBCUT (19:28)
[2022-06-16 20:00] VITALS: BP 98/70
[2022-06-16] MEDS: ATORVASTATIN CALCIUM 10MG TABLET PO SCH (20:55)
[2022-06-16] MEDS ORDERED: SENNOSIDES 8.6MG TABLET PO PRN (21:00)
[2022-06-16] MEDS: INSULIN GLARGINE 100 UNITS/ML SUBCUT SCH (21:08)
[2022-06-17] MEDS: BLOOD SUGAR DIAGNOSTIC STRIP TEST SCH ×4 (06:25→21:00)
[2022-06-17] MEDS: INSULIN LISPRO 100 UNITS/ML SUBCUT SCH ×4 (06:35→22:03)
[2022-06-17 07:05] LABS: PROSTRATE SPECIFIC AG TOTAL 1.74 ng/mL (0.0-4.0)
[2022-06-17 07:17] LABS: CHLORIDE 105 mEq/L (98-107)
[2022-06-17 07:20] LABS: FOLIC ACID (FOLATE) SERUM 15.6 ng/mL (>5.38)
[2022-06-17 07:30] LABS: CREATINE KINASE 36 IU/L (39-308); TOTAL IRON BINDING CAPACITY 210 ug/dL (250-450)
[2022-06-17 08:00] VITALS: BP 96/65
[2022-06-17] MEDS: FUROSEMIDE 40MG TABLET PO SCH (09:19)
[2022-06-17] MEDS: FINASTERIDE 5MG TABLET PO SCH (09:19)
[2022-06-17] MEDS: THIAMINE HCL 100MG TABLET PO SCH (09:19)
[2022-06-17] MEDS: GABAPENTIN 100MG CAPSULE PO SCH ×3 (09:20→17:43)
[2022-06-17] MEDS: FAMOTIDINE 20MG TABLET PO SCH (09:20)
[2022-06-17] MEDS: CYANOCOBALAMIN 1000MCG TABLET PO SCH (09:20)
[2022-06-17] MEDS: ASCORBIC ACID 250 MG TABLET PO SCH (09:21)
[2022-06-17] MEDS: FOLIC ACID 1MG TABLET PO SCH (09:21)
[2022-06-17] MEDS: BENZTROPINE MESYLATE 0.5MG TABLET PO SCH ×2 (09:21→17:43)
[2022-06-17] MEDS: TAMSULOSIN HCL 0.4MG SR CAPSULE PO SCH (09:22)
[2022-06-17] MEDS: HYDROCODONE/ACETAMINOPHEN 5/325MG TABLET PO PRN (09:23)
[2022-06-17] MEDS: LIDOCAINE 5% PATCH TOP SCH ×2 (09:23→15:52)
[2022-06-17] MEDS: INSULIN GLARGINE 100 UNITS/ML SUBCUT SCH ×2 (10:43→22:04)
[2022-06-17] MEDS: DICLOFENAC SODIUM 1% GEL 50GM TOP SCH ×2 (17:00→21:28)
[2022-06-17] MEDS: RIVAROXABAN 20 MG TABLET PO SCH (17:43)
[2022-06-17 20:00] VITALS: BP 99/55
[2022-06-17] MEDS: ATORVASTATIN CALCIUM 10MG TABLET PO SCH (21:27)
[2022-06-18 08:00] VITALS: BP 146/68
[2022-06-18] MEDS: TAMSULOSIN HCL 0.4MG SR CAPSULE PO SCH (09:00)
[2022-06-18] MEDS: FINASTERIDE 5MG TABLET PO SCH (09:00)
[2022-06-18] MEDS: DICLOFENAC SODIUM 1% GEL 50GM TOP SCH ×4 (09:00→20:59)
[2022-06-18] MEDS: INSULIN LISPRO 100 UNITS/ML SUBCUT SCH ×4 (09:00→20:58)
[2022-06-18] MEDS: THIAMINE HCL 100MG TABLET PO SCH (09:00)
[2022-06-18] MEDS: BENZTROPINE MESYLATE 0.5MG TABLET PO SCH ×2 (09:00→16:41)
[2022-06-18] MEDS: FUROSEMIDE 40MG TABLET PO SCH (09:00)
[2022-06-18] MEDS: ASCORBIC ACID 250 MG TABLET PO SCH (09:00)
[2022-06-18] MEDS: FOLIC ACID 1MG TABLET PO SCH (09:00)
[2022-06-18] MEDS: LIDOCAINE 5% PATCH TOP SCH ×2 (09:00)
[2022-06-18] MEDS: CYANOCOBALAMIN 1000MCG TABLET PO SCH (09:00)
[2022-06-18] MEDS: GABAPENTIN 100MG CAPSULE PO SCH ×3 (09:00→16:42)
[2022-06-18] MEDS: FAMOTIDINE 20MG TABLET PO SCH (09:00)
[2022-06-18] MEDS: INSULIN GLARGINE 100 UNITS/ML SUBCUT SCH ×2 (10:00→20:58)
[2022-06-18] MEDS: BLOOD SUGAR DIAGNOSTIC STRIP TEST SCH ×3 (11:15→20:59)
[2022-06-18] MEDS: RIVAROXABAN 20 MG TABLET PO SCH (16:42)
[2022-06-18 19:41] VITALS: BP 136/49
[2022-06-18] MEDS: ATORVASTATIN CALCIUM 10MG TABLET PO SCH (20:38)
[2022-06-19] MEDS: BLOOD SUGAR DIAGNOSTIC STRIP TEST SCH ×4 (06:40→21:00)
[2022-06-19] MEDS: INSULIN LISPRO 100 UNITS/ML SUBCUT SCH ×4 (06:48→21:00)
[2022-06-19 08:00] VITALS: BP 124/54
[2022-06-19] MEDS: DICLOFENAC SODIUM 1% GEL 50GM TOP SCH ×4 (08:40→21:00)
[2022-06-19] MEDS: LORAZEPAM 0.5MG TABLET PO PRN ×2 (08:40→10:12)
[2022-06-19] MEDS: BENZTROPINE MESYLATE 0.5MG TABLET PO SCH ×2 (08:41→17:19)
[2022-06-19] MEDS: GABAPENTIN 100MG CAPSULE PO SCH ×3 (08:41→17:18)
[2022-06-19] MEDS: TAMSULOSIN HCL 0.4MG SR CAPSULE PO SCH (08:41)
[2022-06-19] MEDS: FUROSEMIDE 40MG TABLET PO SCH (08:41)
[2022-06-19] MEDS: CYANOCOBALAMIN 1000MCG TABLET PO SCH (08:42)
[2022-06-19] MEDS: THIAMINE HCL 100MG TABLET PO SCH (08:42)
[2022-06-19] MEDS: FAMOTIDINE 20MG TABLET PO SCH (08:42)
[2022-06-19] MEDS: FOLIC ACID 1MG TABLET PO SCH (08:42)
[2022-06-19] MEDS: FINASTERIDE 5MG TABLET PO SCH (08:48)
[2022-06-19] MEDS: ASCORBIC ACID 250 MG TABLET PO SCH (08:49)
[2022-06-19] MEDS: LIDOCAINE 5% PATCH TOP SCH ×2 (08:49)
[2022-06-19] MEDS: INSULIN GLARGINE 100 UNITS/ML SUBCUT SCH ×2 (09:31→22:00)
[2022-06-19] MEDS: RIVAROXABAN 20 MG TABLET PO SCH (17:18)
[2022-06-19 20:11] VITALS: BP 98/71
[2022-06-19] MEDS: ATORVASTATIN CALCIUM 10MG TABLET PO SCH ×2 (20:51→21:00)
[2022-06-20] MEDS: BLOOD SUGAR DIAGNOSTIC STRIP TEST SCH ×4 (06:22→21:37)
[2022-06-20] MEDS: INSULIN LISPRO 100 UNITS/ML SUBCUT SCH ×4 (07:45→21:42)
[2022-06-20 08:00] VITALS: BP 106/63
[2022-06-20] MEDS: THIAMINE HCL 100MG TABLET PO SCH (08:43)
[2022-06-20] MEDS: TAMSULOSIN HCL 0.4MG SR CAPSULE PO SCH (08:43)
[2022-06-20] MEDS: FOLIC ACID 1MG TABLET PO SCH (08:43)
[2022-06-20] MEDS: CYANOCOBALAMIN 1000MCG TABLET PO SCH (08:43)
[2022-06-20] MEDS: BENZTROPINE MESYLATE 0.5MG TABLET PO SCH ×2 (08:44→16:59)
[2022-06-20] MEDS: FINASTERIDE 5MG TABLET PO SCH (08:44)
[2022-06-20] MEDS: FUROSEMIDE 40MG TABLET PO SCH (08:44)
[2022-06-20] MEDS: ASCORBIC ACID 250 MG TABLET PO SCH (08:44)
[2022-06-20] MEDS: FAMOTIDINE 20MG TABLET PO SCH (08:44)
[2022-06-20] MEDS: GABAPENTIN 100MG CAPSULE PO SCH ×3 (08:44→16:59)
[2022-06-20] MEDS: HYDROCODONE/ACETAMINOPHEN 5/325MG TABLET PO PRN ×2 (08:49→16:59)
[2022-06-20] MEDS: LIDOCAINE 5% PATCH TOP SCH ×2 (08:57)
[2022-06-20] MEDS: DICLOFENAC SODIUM 1% GEL 50GM TOP SCH ×4 (08:58→21:44)
[2022-06-20] MEDS: INSULIN GLARGINE 100 UNITS/ML SUBCUT SCH ×2 (10:00→21:42)
[2022-06-20 10:48] LABS: BASOPHILS % 0.6 % (0.0-2.0); EOSINOPHILS % 2.9 % (0.0-5.0); HEMATOCRIT. 39.6 % (42.0-52.0); HEMOGLOBIN. 13.4 g/dL (14.0-18.0); LYMPHOCYTES % 22.5 % (20.0-50.0); MEAN CORPUSCULAR HEMOGLOBIN 32.1 pg (28.0-32.0); MEAN CORPUSCULAR VOLUME 94.9 fL (80.0-94.0); MONOCYTES % 7.6 % (2.0-8.0); NEUTROPHILS % 66.4 % (40.0-76.0); PLATELET 175 x1000/uL (130-400); RED BLOOD CELL COUNT 4.17 mill/uL (4.7-6.1); RED CELL DISTRIBUTION WIDTH 13.2 % (11.6-14.6)
[2022-06-20 11:02] LABS: CHLORIDE 104 mEq/L (98-107)
[2022-06-20] MEDS ORDERED: LIDOCAINE 5% PATCH TOP SCH (11:45)
[2022-06-20] MEDS: RIVAROXABAN 20 MG TABLET PO SCH (16:59)
[2022-06-20 20:00] VITALS: BP 116/65
[2022-06-20] MEDS: ATORVASTATIN CALCIUM 10MG TABLET PO SCH (21:34)
[2022-06-21] MEDS: BLOOD SUGAR DIAGNOSTIC STRIP TEST SCH ×4 (05:03→21:05)
[2022-06-21 08:00] VITALS: BP 108/68
[2022-06-21] MEDS: BENZTROPINE MESYLATE 0.5MG TABLET PO SCH ×2 (09:00→17:00)
[2022-06-21] MEDS: FUROSEMIDE 40MG TABLET PO SCH (09:00)
[2022-06-21] MEDS: LIDOCAINE 5% PATCH TOP SCH ×2 (09:00)
[2022-06-21] MEDS: DICLOFENAC SODIUM 1% GEL 50GM TOP SCH ×4 (09:00→21:08)
[2022-06-21] MEDS: CYANOCOBALAMIN 1000MCG TABLET PO SCH (10:01)
[2022-06-21] MEDS: FAMOTIDINE 20MG TABLET PO SCH (10:02)
[2022-06-21] MEDS: THIAMINE HCL 100MG TABLET PO SCH (10:02)
[2022-06-21] MEDS: FINASTERIDE 5MG TABLET PO SCH (10:02)
[2022-06-21] MEDS: FOLIC ACID 1MG TABLET PO SCH (10:02)
[2022-06-21] MEDS: GABAPENTIN 100MG CAPSULE PO SCH ×3 (10:03→18:07)
[2022-06-21] MEDS: TAMSULOSIN HCL 0.4MG SR CAPSULE PO SCH (10:04)
[2022-06-21] MEDS: ASCORBIC ACID 250 MG TABLET PO SCH (10:05)
[2022-06-21] MEDS: INSULIN GLARGINE 100 UNITS/ML SUBCUT SCH ×2 (10:13→20:59)
[2022-06-21] MEDS: INSULIN LISPRO 100 UNITS/ML SUBCUT SCH ×4 (10:13→20:58)
[2022-06-21] MEDS: HYDROCODONE/ACETAMINOPHEN 5/325MG TABLET PO PRN ×2 (13:53→20:57)
[2022-06-21] MEDS: RIVAROXABAN 20 MG TABLET PO SCH (18:07)
[2022-06-21 20:00] VITALS: BP 111/61
[2022-06-21] MEDS: ATORVASTATIN CALCIUM 10MG TABLET PO SCH (20:57)
[2022-06-22] MEDS: INSULIN LISPRO 100 UNITS/ML SUBCUT SCH ×4 (07:00→22:17)
[2022-06-22] MEDS: BLOOD SUGAR DIAGNOSTIC STRIP TEST SCH ×4 (07:24→21:47)
[2022-06-22 08:00] VITALS: BP 113/61
[2022-06-22] MEDS: THIAMINE HCL 100MG TABLET PO SCH (08:36)
[2022-06-22] MEDS: FINASTERIDE 5MG TABLET PO SCH (08:36)
[2022-06-22] MEDS: LIDOCAINE 5% PATCH TOP SCH ×2 (08:36)
[2022-06-22] MEDS: FOLIC ACID 1MG TABLET PO SCH (08:37)
[2022-06-22] MEDS: ASCORBIC ACID 250 MG TABLET PO SCH (08:37)
[2022-06-22] MEDS: CYANOCOBALAMIN 1000MCG TABLET PO SCH (08:38)
[2022-06-22] MEDS: GABAPENTIN 100MG CAPSULE PO SCH ×3 (08:39→16:37)
[2022-06-22] MEDS: FUROSEMIDE 40MG TABLET PO SCH (08:39)
[2022-06-22] MEDS: TAMSULOSIN HCL 0.4MG SR CAPSULE PO SCH (08:40)
[2022-06-22] MEDS: BENZTROPINE MESYLATE 0.5MG TABLET PO SCH ×2 (08:40→16:37)
[2022-06-22] MEDS: FAMOTIDINE 20MG TABLET PO SCH (08:41)
[2022-06-22] MEDS: DICLOFENAC SODIUM 1% GEL 50GM TOP SCH ×4 (08:47→21:53)
[2022-06-22] MEDS: INSULIN GLARGINE 100 UNITS/ML SUBCUT SCH ×2 (09:21→22:16)
[2022-06-22] MEDS ORDERED: BARIUM SULFATE 176 GM SUSP.RECON ONE (10:38)
[2022-06-22] MEDS: RIVAROXABAN 20 MG TABLET PO SCH (16:37)
[2022-06-22 17:06] LABS: 25-HYDROXY VITAMIN D3 13 ng/mL (.)
[2022-06-22 20:00] VITALS: BP 99/60
[2022-06-22] MEDS: ATORVASTATIN CALCIUM 10MG TABLET PO SCH (21:53)
[2022-06-23] MEDS: BLOOD SUGAR DIAGNOSTIC STRIP TEST SCH ×4 (05:42→21:00)
[2022-06-23 08:00] VITALS: BP 101/62
[2022-06-23] MEDS: LIDOCAINE 5% PATCH TOP SCH ×2 (08:46→08:47)
[2022-06-23] MEDS: FAMOTIDINE 20MG TABLET PO SCH (08:47)
[2022-06-23] MEDS: GABAPENTIN 100MG CAPSULE PO SCH ×3 (08:47→17:40)
[2022-06-23] MEDS: FOLIC ACID 1MG TABLET PO SCH (08:48)
[2022-06-23] MEDS: FINASTERIDE 5MG TABLET PO SCH (08:48)
[2022-06-23] MEDS: CYANOCOBALAMIN 1000MCG TABLET PO SCH (08:48)
[2022-06-23] MEDS: FUROSEMIDE 40MG TABLET PO SCH (08:48)
[2022-06-23] MEDS: BENZTROPINE MESYLATE 0.5MG TABLET PO SCH ×2 (08:48→17:40)
[2022-06-23] MEDS: THIAMINE HCL 100MG TABLET PO SCH (08:48)
[2022-06-23] MEDS: TAMSULOSIN HCL 0.4MG SR CAPSULE PO SCH (08:48)
[2022-06-23] MEDS: ASCORBIC ACID 250 MG TABLET PO SCH (08:49)
[2022-06-23] MEDS: DICLOFENAC SODIUM 1% GEL 50GM TOP SCH ×4 (09:22→21:23)
[2022-06-23] MEDS: INSULIN LISPRO 100 UNITS/ML SUBCUT SCH ×4 (09:35→21:00)
[2022-06-23] MEDS: INSULIN GLARGINE 100 UNITS/ML SUBCUT SCH ×2 (10:01→21:45)
[2022-06-23] MEDS: HYDROCODONE/ACETAMINOPHEN 5/325MG TABLET PO PRN (15:03)
[2022-06-23] MEDS: RIVAROXABAN 20 MG TABLET PO SCH (17:40)
[2022-06-23] MEDS ORDERED: ERGOCALCIFEROL 50000UNITS CAPSULE PO SCH (18:45)
[2022-06-23 20:00] VITALS: BP 119/66
[2022-06-23] MEDS: ATORVASTATIN CALCIUM 10MG TABLET PO SCH (21:23)
[2022-06-24 06:21] LABS: BASOPHILS % 0.7 % (0.0-2.0); EOSINOPHILS % 2.6 % (0.0-5.0); HEMATOCRIT. 39.1 % (42.0-52.0); HEMOGLOBIN. 13.6 g/dL (14.0-18.0); LYMPHOCYTES % 25.2 % (20.0-50.0); MEAN CORPUSCULAR HEMOGLOBIN 32.8 pg (28.0-32.0); MEAN CORPUSCULAR VOLUME 94.1 fL (80.0-94.0); MONOCYTES % 9.5 % (2.0-8.0); PLATELET 203 x1000/uL (130-400); RED BLOOD CELL COUNT 4.16 mill/uL (4.7-6.1); RED CELL DISTRIBUTION WIDTH 13.6 % (11.6-14.6)
[2022-06-24 06:24] LABS: CHLORIDE 105 mEq/L (98-107)
[2022-06-24 06:32] LABS: PHOSPHORUS 2.3 mg/dL (2.5-4.9); T4 FREE 0.94 ng/dL (0.76-1.46)
[2022-06-24] MEDS: BLOOD SUGAR DIAGNOSTIC STRIP TEST SCH ×4 (06:43→21:34)
[2022-06-24] MEDS: INSULIN LISPRO 100 UNITS/ML SUBCUT SCH ×3 (07:23→16:43)
[2022-06-24 08:00] VITALS: BP 115/56
[2022-06-24] MEDS: DICLOFENAC SODIUM 1% GEL 50GM TOP SCH ×4 (09:00→21:34)
[2022-06-24] MEDS: ASCORBIC ACID 250 MG TABLET PO SCH (09:00)
[2022-06-24] MEDS: LIDOCAINE 5% PATCH TOP SCH ×2 (09:01)
[2022-06-24] MEDS: TAMSULOSIN HCL 0.4MG SR CAPSULE PO SCH (09:02)
[2022-06-24] MEDS: FOLIC ACID 1MG TABLET PO SCH (09:02)
[2022-06-24] MEDS: FINASTERIDE 5MG TABLET PO SCH (09:02)
[2022-06-24] MEDS: GABAPENTIN 100MG CAPSULE PO SCH ×3 (09:02→16:43)
[2022-06-24] MEDS: THIAMINE HCL 100MG TABLET PO SCH (09:02)
[2022-06-24] MEDS: BENZTROPINE MESYLATE 0.5MG TABLET PO SCH ×2 (09:02→16:44)
[2022-06-24] MEDS: CYANOCOBALAMIN 1000MCG TABLET PO SCH (09:02)
[2022-06-24] MEDS: FUROSEMIDE 40MG TABLET PO SCH (09:03)
[2022-06-24] MEDS: INSULIN GLARGINE 100 UNITS/ML SUBCUT SCH ×2 (09:03→21:54)
[2022-06-24] MEDS: FAMOTIDINE 20MG TABLET PO SCH (09:03)
[2022-06-24] MEDS: INSULIN LISPRO (LOW DOSE) 100 UNITS/ML SUBCUT SCH ×2 (13:00→16:42)
[2022-06-24] MEDS ORDERED: INSULIN LISPRO 100 UNITS/ML SUBCUT SCH (13:00)
[2022-06-24] MEDS: HYDROCODONE/ACETAMINOPHEN 5/325MG TABLET PO PRN (14:18)
[2022-06-24] MEDS ORDERED: ERGOCALCIFEROL 50000UNITS CAPSULE PO SCH (15:00)
[2022-06-24] MEDS: RIVAROXABAN 20 MG TABLET PO SCH (16:43)
[2022-06-24] MEDS ORDERED: LACTULOSE 20G/30ML UDC PO SCH (17:00)
[2022-06-24] MEDS: ATORVASTATIN CALCIUM 10MG TABLET PO SCH (21:34)
[2022-06-25] MEDS: BLOOD SUGAR DIAGNOSTIC STRIP TEST SCH ×5 (03:00→21:36)
[2022-06-25] MEDS: INSULIN LISPRO (LOW DOSE) 100 UNITS/ML SUBCUT SCH ×3 (06:03→17:40)
[2022-06-25] MEDS: INSULIN LISPRO 100 UNITS/ML SUBCUT SCH ×3 (06:31→17:40)
[2022-06-25 08:00] VITALS: BP 105/60
[2022-06-25] MEDS: DICLOFENAC SODIUM 1% GEL 50GM TOP SCH ×4 (09:00→21:33)
[2022-06-25] MEDS: FAMOTIDINE 20MG TABLET PO SCH (10:02)
[2022-06-25] MEDS: LIDOCAINE 5% PATCH TOP SCH ×2 (10:03)
[2022-06-25] MEDS: TAMSULOSIN HCL 0.4MG SR CAPSULE PO SCH (10:04)
[2022-06-25] MEDS: FINASTERIDE 5MG TABLET PO SCH (10:04)
[2022-06-25] MEDS: BENZTROPINE MESYLATE 0.5MG TABLET PO SCH ×2 (10:04→17:29)
[2022-06-25] MEDS: THIAMINE HCL 100MG TABLET PO SCH (10:05)
[2022-06-25] MEDS: CYANOCOBALAMIN 1000MCG TABLET PO SCH (10:05)
[2022-06-25] MEDS: FUROSEMIDE 40MG TABLET PO SCH (10:05)
[2022-06-25] MEDS: GABAPENTIN 100MG CAPSULE PO SCH ×3 (10:05→17:30)
[2022-06-25] MEDS: ASCORBIC ACID 250 MG TABLET PO SCH (10:05)
[2022-06-25] MEDS: FOLIC ACID 1MG TABLET PO SCH (10:05)
[2022-06-25] MEDS: INSULIN GLARGINE 100 UNITS/ML SUBCUT SCH ×2 (11:06→21:56)
[2022-06-25] MEDS: RIVAROXABAN 20 MG TABLET PO SCH (17:29)
[2022-06-25 20:00] VITALS: BP 113/64
[2022-06-25] MEDS: ATORVASTATIN CALCIUM 10MG TABLET PO SCH (21:33)
[2022-06-26] MEDS: BLOOD SUGAR DIAGNOSTIC STRIP TEST SCH ×5 (02:50→21:00)
[2022-06-26] MEDS: INSULIN LISPRO 100 UNITS/ML SUBCUT SCH ×3 (06:24→17:21)
[2022-06-26] MEDS: INSULIN LISPRO (LOW DOSE) 100 UNITS/ML SUBCUT SCH ×3 (06:27→17:03)
[2022-06-26 08:00] VITALS: BP 104/61
[2022-06-26] MEDS: LIDOCAINE 5% PATCH TOP SCH ×2 (08:27→08:41)
[2022-06-26] MEDS: FINASTERIDE 5MG TABLET PO SCH (08:28)
[2022-06-26] MEDS: BENZTROPINE MESYLATE 0.5MG TABLET PO SCH ×2 (08:28→16:58)
[2022-06-26] MEDS: FOLIC ACID 1MG TABLET PO SCH (08:28)
[2022-06-26] MEDS: GABAPENTIN 100MG CAPSULE PO SCH ×3 (08:28→16:58)
[2022-06-26] MEDS: FAMOTIDINE 20MG TABLET PO SCH (08:28)
[2022-06-26] MEDS: ASCORBIC ACID 250 MG TABLET PO SCH (08:29)
[2022-06-26] MEDS: FUROSEMIDE 40MG TABLET PO SCH (08:29)
[2022-06-26] MEDS: THIAMINE HCL 100MG TABLET PO SCH (08:29)
[2022-06-26] MEDS: TAMSULOSIN HCL 0.4MG SR CAPSULE PO SCH (08:31)
[2022-06-26] MEDS: CYANOCOBALAMIN 1000MCG TABLET PO SCH (08:32)
[2022-06-26] MEDS: DICLOFENAC SODIUM 1% GEL 50GM TOP SCH ×4 (08:40→22:53)
[2022-06-26] MEDS: INSULIN GLARGINE 100 UNITS/ML SUBCUT SCH ×2 (10:06→22:53)
[2022-06-26] MEDS: RIVAROXABAN 20 MG TABLET PO SCH (16:58)
[2022-06-26 20:00] VITALS: BP 126/69
[2022-06-26] MEDS: ATORVASTATIN CALCIUM 10MG TABLET PO SCH (22:43)
[2022-06-27] MEDS: BLOOD SUGAR DIAGNOSTIC STRIP TEST SCH ×5 (04:00→21:00)
[2022-06-27] MEDS: INSULIN LISPRO (LOW DOSE) 100 UNITS/ML SUBCUT SCH ×3 (07:10→16:35)
[2022-06-27] MEDS: INSULIN LISPRO 100 UNITS/ML SUBCUT SCH ×3 (07:15→16:35)
[2022-06-27 08:00] VITALS: BP 94/55
[2022-06-27] MEDS: FOLIC ACID 1MG TABLET PO SCH (09:16)
[2022-06-27] MEDS: THIAMINE HCL 100MG TABLET PO SCH (09:16)
[2022-06-27] MEDS: FUROSEMIDE 40MG TABLET PO SCH (09:16)
[2022-06-27] MEDS: LIDOCAINE 5% PATCH TOP SCH ×2 (09:16)
[2022-06-27] MEDS: BENZTROPINE MESYLATE 0.5MG TABLET PO SCH ×2 (09:17→16:59)
[2022-06-27] MEDS: FINASTERIDE 5MG TABLET PO SCH (09:17)
[2022-06-27] MEDS: GABAPENTIN 100MG CAPSULE PO SCH ×3 (09:17→16:59)
[2022-06-27] MEDS: FAMOTIDINE 20MG TABLET PO SCH (09:17)
[2022-06-27] MEDS: CYANOCOBALAMIN 1000MCG TABLET PO SCH (09:17)
[2022-06-27] MEDS: TAMSULOSIN HCL 0.4MG SR CAPSULE PO SCH (09:22)
[2022-06-27] MEDS: ASCORBIC ACID 250 MG TABLET PO SCH (09:22)
[2022-06-27] MEDS: DICLOFENAC SODIUM 1% GEL 50GM TOP SCH ×4 (09:24→21:00)
[2022-06-27] MEDS: INSULIN GLARGINE 100 UNITS/ML SUBCUT SCH ×2 (10:18→21:47)
[2022-06-27] MEDS: RIVAROXABAN 20 MG TABLET PO SCH (16:59)
[2022-06-27 20:00] VITALS: BP 106/61
[2022-06-27] MEDS: ATORVASTATIN CALCIUM 10MG TABLET PO SCH (21:00)
[2022-06-28] MEDS: BLOOD SUGAR DIAGNOSTIC STRIP TEST SCH ×5 (03:00→20:42)
[2022-06-28 06:01] LABS: BASOPHILS % 0.6 % (0.0-2.0); EOSINOPHILS % 3.5 % (0.0-5.0); HEMATOCRIT. 40.2 % (42.0-52.0); HEMOGLOBIN. 13.8 g/dL (14.0-18.0); LYMPHOCYTES % 24.3 % (20.0-50.0); MEAN CORPUSCULAR HEMOGLOBIN 32.7 pg (28.0-32.0); MEAN CORPUSCULAR VOLUME 95.2 fL (80.0-94.0); NEUTROPHILS % 63.6 % (40.0-76.0); PLATELET 224 x1000/uL (130-400); RED BLOOD CELL COUNT 4.22 mill/uL (4.7-6.1); RED CELL DISTRIBUTION WIDTH 13.7 % (11.6-14.6)
[2022-06-28 06:15] LABS: CHLORIDE 106 mEq/L (98-107)
[2022-06-28] MEDS: INSULIN LISPRO (LOW DOSE) 100 UNITS/ML SUBCUT SCH ×3 (07:17→17:06)
[2022-06-28] MEDS: INSULIN LISPRO 100 UNITS/ML SUBCUT SCH ×3 (07:18→17:05)
[2022-06-28 08:00] VITALS: BP 128/75
[2022-06-28] MEDS: LIDOCAINE 5% PATCH TOP SCH ×2 (08:15→08:16)
[2022-06-28] MEDS: FUROSEMIDE 40MG TABLET PO SCH (08:16)
[2022-06-28] MEDS: FAMOTIDINE 20MG TABLET PO SCH (08:16)
[2022-06-28] MEDS: TAMSULOSIN HCL 0.4MG SR CAPSULE PO SCH (08:16)
[2022-06-28] MEDS: GABAPENTIN 100MG CAPSULE PO SCH ×3 (08:16→16:07)
[2022-06-28] MEDS: FINASTERIDE 5MG TABLET PO SCH (08:17)
[2022-06-28] MEDS: CYANOCOBALAMIN 1000MCG TABLET PO SCH (08:17)
[2022-06-28] MEDS: THIAMINE HCL 100MG TABLET PO SCH (08:17)
[2022-06-28] MEDS: FOLIC ACID 1MG TABLET PO SCH (08:17)
[2022-06-28] MEDS: ASCORBIC ACID 250 MG TABLET PO SCH (08:17)
[2022-06-28] MEDS: BENZTROPINE MESYLATE 0.5MG TABLET PO SCH ×2 (08:18→16:07)
[2022-06-28] MEDS: DICLOFENAC SODIUM 1% GEL 50GM TOP SCH ×4 (08:25→20:42)
[2022-06-28] MEDS: INSULIN GLARGINE 100 UNITS/ML SUBCUT SCH ×2 (10:07→21:23)
[2022-06-28] MEDS ORDERED: ACETAMINOPHEN 325MG TABLET PO PRN (11:45)
[2022-06-28] MEDS: RIVAROXABAN 20 MG TABLET PO SCH (16:07)
[2022-06-28 20:00] VITALS: BP 139/51
[2022-06-28] MEDS: ATORVASTATIN CALCIUM 10MG TABLET PO SCH (20:43)
[2022-06-29] MEDS: BLOOD SUGAR DIAGNOSTIC STRIP TEST SCH ×5 (03:00→20:23)
[2022-06-29] MEDS: INSULIN LISPRO 100 UNITS/ML SUBCUT SCH ×3 (06:46→17:11)
[2022-06-29] MEDS: INSULIN LISPRO (LOW DOSE) 100 UNITS/ML SUBCUT SCH ×4 (06:47→21:39)
[2022-06-29 08:00] VITALS: BP 114/60
[2022-06-29] MEDS: LIDOCAINE 5% PATCH TOP SCH ×2 (08:28)
[2022-06-29] MEDS: TAMSULOSIN HCL 0.4MG SR CAPSULE PO SCH (08:34)
[2022-06-29] MEDS: ASCORBIC ACID 250 MG TABLET PO SCH (08:34)
[2022-06-29] MEDS: GABAPENTIN 100MG CAPSULE PO SCH ×3 (08:34→16:53)
[2022-06-29] MEDS: FOLIC ACID 1MG TABLET PO SCH (08:35)
[2022-06-29] MEDS: FAMOTIDINE 20MG TABLET PO SCH (08:35)
[2022-06-29] MEDS: FUROSEMIDE 40MG TABLET PO SCH (08:35)
[2022-06-29] MEDS: FINASTERIDE 5MG TABLET PO SCH (08:35)
[2022-06-29] MEDS: BENZTROPINE MESYLATE 0.5MG TABLET PO SCH ×2 (08:35→16:53)
[2022-06-29] MEDS: THIAMINE HCL 100MG TABLET PO SCH (08:35)
[2022-06-29] MEDS: DICLOFENAC SODIUM 1% GEL 50GM TOP SCH ×4 (08:35→20:23)
[2022-06-29] MEDS: CYANOCOBALAMIN 1000MCG TABLET PO SCH (08:35)
[2022-06-29] MEDS: INSULIN GLARGINE 100 UNITS/ML SUBCUT SCH ×2 (09:39→21:38)
[2022-06-29] MEDS: RIVAROXABAN 20 MG TABLET PO SCH (16:53)
[2022-06-29 20:09] VITALS: BP 119/66
[2022-06-29] MEDS: ATORVASTATIN CALCIUM 10MG TABLET PO SCH (20:22)
[2022-06-30] MEDS: BLOOD SUGAR DIAGNOSTIC STRIP TEST SCH ×3 (03:00→12:10)
[2022-06-30] MEDS: INSULIN LISPRO 100 UNITS/ML SUBCUT SCH (06:43)
[2022-06-30 08:00] VITALS: BP 130/74
[2022-06-30] MEDS: FOLIC ACID 1MG TABLET PO SCH (08:12)
[2022-06-30] MEDS: THIAMINE HCL 100MG TABLET PO SCH (08:12)
[2022-06-30] MEDS: CYANOCOBALAMIN 1000MCG TABLET PO SCH (08:12)
[2022-06-30] MEDS: FUROSEMIDE 40MG TABLET PO SCH (08:12)
[2022-06-30] MEDS: GABAPENTIN 100MG CAPSULE PO SCH (08:12)
[2022-06-30] MEDS: FINASTERIDE 5MG TABLET PO SCH (08:13)
[2022-06-30] MEDS: ASCORBIC ACID 250 MG TABLET PO SCH (08:13)
[2022-06-30] MEDS: TAMSULOSIN HCL 0.4MG SR CAPSULE PO SCH (08:13)
[2022-06-30] MEDS: LIDOCAINE 5% PATCH TOP SCH ×2 (08:14)
[2022-06-30] MEDS: DICLOFENAC SODIUM 1% GEL 50GM TOP SCH (08:14)
[2022-06-30] MEDS: BENZTROPINE MESYLATE 0.5MG TABLET PO SCH (08:15)
[2022-06-30] MEDS: FAMOTIDINE 20MG TABLET PO SCH (08:15)
[2022-06-30] MEDS: INSULIN GLARGINE 100 UNITS/ML SUBCUT SCH (10:00)
[2022-06-30 10:31] VITALS: BP 130/74
[2022-06-30] MEDS ORDERED: LANTUSUD SUBCUT (10:35)
[2022-06-30] MEDS ORDERED: RIVA20TA PO (10:35)
[2022-06-30] MEDS ORDERED: FINA5TAB11 PO (10:35)
[2022-06-30] MEDS ORDERED: ASCO250T22 PO (10:35)
[2022-06-30] MEDS ORDERED: FAMO20TA8 PO (10:35)
[2022-06-30] MEDS ORDERED: GABA-529 PO (10:35)
[2022-06-30] MEDS ORDERED: INSLIS SUBCUT (10:35)
[2022-06-30] MEDS ORDERED: ATOR10TA PO (10:35)
[2022-06-30] MEDS ORDERED: TAMS-11 PO (10:35)
[2022-06-30] MEDS ORDERED: THIA100T72 PO (10:35)
[2022-06-30] MEDS ORDERED: FURO40TA5 PO (10:35)
[2022-06-30] MEDS ORDERED: SENN-257 PO (10:35)
[2022-06-30] MEDS ORDERED: FOLI-43 PO (10:35)
[2022-06-30] MEDS ORDERED: BENZ0.5T43 PO (10:35)
== END 2022-06-30 12:00 | DRG 70 ==
PROVIDERS: ADMIT Physical Medicine & Rehabilitation Spinal Cord Injury Medicine; ATTEND Internal Medicine
DX: G93.41 Metabolic encephalopathy (principal); G82.50 Quadriplegia, unspecified; M48.56XA Collapsed vertebra, not elsewhere classified, lumbar region, initial encounter for fracture; N39.0 Urinary tract infection, site not specified; E46 Unspecified protein-calorie malnutrition; E11.65 Type 2 diabetes mellitus with hyperglycemia; I48.0 Paroxysmal atrial fibrillation; I11.0 Hypertensive heart disease with heart failure; I50.9 Heart failure, unspecified; N40.0 Benign prostatic hyperplasia without lower urinary tract symptoms; R26.9 Unspecified abnormalities of gait and mobility; F03.90 Unspecified dementia, unspecified severity, without behavioral disturbance, psychotic disturbance, mood disturbance, and anxiety; E78.5 Hyperlipidemia, unspecified; E83.51 Hypocalcemia; E83.39 Other disorders of phosphorus metabolism; M47.816 Spondylosis without myelopathy or radiculopathy, lumbar region; M48.02 Spinal stenosis, cervical region; M47.814 Spondylosis without myelopathy or radiculopathy, thoracic region; Z20.822 Contact with and (suspected) exposure to COVID-19; E66.3 Overweight; R13.10 Dysphagia, unspecified; M48.061 Spinal stenosis, lumbar region without neurogenic claudication; F41.9 Anxiety disorder, unspecified; F32.A Depression, unspecified; E88.89 Other specified metabolic disorders; Z79.01 Long term (current) use of anticoagulants; Z79.4 Long term (current) use of insulin; Z87.891 Personal history of nicotine dependence; Z68.28 Body mass index [BMI] 28.0-28.9, adult; R53.81 Other malaise
CPT/HCPCS: 36415; 70551; 72141; 72146; 72148; 74230; 80048; 80053; 82140; 82306; 82533; 82550; 82607; 82728; 82746; 82962; 83540; 83550; 84100; 84134; 84153; 84439; 84443; 84484; 85025; 87426; 92523; 92610; 92611; 93005; 93306; 93970; 97110; 97116; 97150; 97162; 97166; 97530; 97535; 97542; J1815; G0103

== ENCOUNTER 2024-11-26 15:32 | Inpatient (IN) | payer MEDICARE, MEDICAID ==
[~2024-11-26] VITALS: Ht 160 cm; Wt 68.9 kg
[~2024-11-26 15:32] MED LIST changes: +ASCO-494 PO; -ASCO125T PO; +ATOR10TA PO; +BENZ0.5T3 PO; -BENZ0.5T43 MT; -CYAN500T47 MT; +FAMO20TA8 PO; -FINA1TAB18 MT; +FINA5TAB11 PO; +FOLI-43 PO; -FURO-151 MT; +FURO40TA5 PO; -GABA-529 MT; +GABA-529 PO; +INSLIS SUBCUT; +LANTUSUD SUBCUT; -LIDO700A30 TP; -METF-873 MT; -PANT20TA17 MT; +QUET25TA PO; -RIVA1TAB PO; +RIVA20TA PO; -SENN-257 MT; +SENN-362 PO; +TAMS-11 PO; -TAMS0.4C31 MT; +THIA100T72 PO; -TOPUD MT
[2024-11-26 17:01] LABS: BASOPHILS % 0.5 % (0.0-2.0); CHLORIDE 94 mEq/L (98-107); EOSINOPHILS % 1.5 % (0.0-5.0); HEMATOCRIT. 48.2 % (42.0-52.0); HEMOGLOBIN. 16.2 g/dL (14.0-18.0); LYMPHOCYTES % 19.2 % (20.0-50.0); MEAN CORPUSCULAR HEMOGLOBIN 32.7 pg (28.0-32.0); MEAN CORPUSCULAR HGB CONC 33.6 g/dL (31.0-37.0); MEAN CORPUSCULAR VOLUME 97.4 fL (80.0-94.0); MONOCYTES % 8.2 % (2.0-8.0); NEUTROPHILS % 70.6 % (40.0-76.0); PLATELET 233 x1000/uL (130-400); POTASSIUM 4.1 mEq/L (3.5-5.1); RED BLOOD CELL COUNT 4.95 mill/uL (4.7-6.1); RED CELL DISTRIBUTION WIDTH 13.3 % (11.6-14.6); SODIUM 132 mEq/L (136-145); WHITE BLOOD COUNT 7.7 x1000/uL (4.5-11.0)
[2024-11-26 17:02] LABS: CALCIUM 9.9 mg/dL (8.7-10.4); CARBON DIOXIDE 24 mEq/L (21-32)
[2024-11-26 17:07] LABS: CREATININE 1.2 mg/dL (0.6-1.3); UREA NITROGEN BLOOD 17 mg/dL (9-23)
[2024-11-26 17:09] LABS: ALANINE AMINOTRANSFERASE 13 IU/L (10-49); ALBUMIN 4.2 g/dL (3.2-4.8); ASPARTATE AMINOTRANSFERASE 13 IU/L (<34); BILIRUBIN TOTAL 0.6 mg/dL (0.1-1.0); PROTEIN TOTAL 7.5 g/dL (6.0-8.3)
[2024-11-26 17:16] LABS: GLUCOSE 643 mg/dL (70-105)
[2024-11-26] MEDS: INSULIN LISPRO 100 UNITS/ML SUBCUT STA (17:29)
[2024-11-26] MEDS ORDERED: DEXTROSE 50% WATER 50ML SYRINGE IV PRN ×2 (17:30→22:30)
[2024-11-26 19:46] LABS: CLARITY URINE CLEAR (CLEAR); COLOR URINE YELLOW (YELLOW); GLUCOSE URINE 3+ (NEGATIVE); KETONES URINE 3+ (NEGATIVE); LEUKOCYTE ESTERASE URINE NEGATIVE (NEGATIVE); NITRITE URINE NEGATIVE (NEGATIVE); OCCULT BLOOD URINE NEGATIVE (NEGATIVE); PH URINE 5.5 (4.5-8.0); PROTEIN URINE NEGATIVE (NEGATIVE); SPECIFIC GRAVITY URINE 1.031 (1.005-1.030); UROBILINOGEN URINE 0.2 E.U./dL (0.2-1.0)
[2024-11-26] MEDS: SODIUM CHLORIDE 0.9% 1,000 ML IV ONE (20:18)
[2024-11-26 20:56] LABS: BACTERIA URINE TRACE; RBC URINE NONE SEEN /hpf (0-2); SQUAMOUS EPITHELIAL CELL URINE FEW /lpf (RARE/1+)
[2024-11-26] MEDS: BLOOD SUGAR DIAGNOSTIC STRIP TEST SCH (21:00)
[2024-11-26] MEDS ORDERED: CLONIDINE 0.1MG TABLET PO PRN (22:30)
[2024-11-26] MEDS ORDERED: ACETAMINOPHEN 325MG TABLET PO PRN ×2 (22:30)
[2024-11-26] MEDS ORDERED: MAGNESIUM/ALUMINUM HYDROXIDE/SIMETHICONE 30ML UDC PO PRN (22:30)
[2024-11-26] MEDS ORDERED: ONDANSETRON HCL 4MG/2ML INJ IV PRN (22:30)
[2024-11-26] MEDS ORDERED: DOCUSATE SODIUM 100MG CAPSULE PO PRN (22:30)
[2024-11-26] MEDS ORDERED: IPRATROPIUM/ALBUTEROL 0.5-3(2.5)MG/3ML NEB HHN PRN (22:30)
[2024-11-26] MEDS ORDERED: GUAIFENESIN 200MG/10ML SUGAR FREE UDC PO PRN (22:30)
[2024-11-26] MEDS: HALOPERIDOL LACTATE 5MG/ML VIAL IM ONE (22:35)
[2024-11-26] MEDS: INSULIN LISPRO 100 UNITS/ML SUBCUT NR (23:18)
[2024-11-26] MEDS: INSULIN GLARGINE 100 UNITS/ML SUBCUT NR (23:18)
[2024-11-27] MEDS: CEFTRIAXONE 2GM/50ML 50 ML IV ONE (02:08)
[2024-11-27] MEDS: SODIUM CHLORIDE 0.9% 1,000 ML IV NR (02:45)
[2024-11-27 04:06] LABS: BASOPHILS % 0.5 % (0.0-2.0); DIFFERENTIAL COMMENT 0; EOSINOPHILS % 1.1 % (0.0-5.0); HEMATOCRIT. 45.8 % (42.0-52.0); HEMOGLOBIN. 16.4 g/dL (14.0-18.0); LYMPHOCYTES % 16.6 % (20.0-50.0); MEAN CORPUSCULAR HEMOGLOBIN 33.6 pg (28.0-32.0); MEAN CORPUSCULAR HGB CONC 35.8 g/dL (31.0-37.0); MEAN CORPUSCULAR VOLUME 93.8 fL (80.0-94.0); MEAN PLATELET VOLUME 8.6 fl (7.4-10.4); MONOCYTES % 9.4 % (2.0-8.0); NEUTROPHILS % 72.4 % (40.0-76.0); PLATELET 229 x1000/uL (130-400); RED BLOOD CELL COUNT 4.88 mill/uL (4.7-6.1); RED CELL DISTRIBUTION WIDTH 13.1 % (11.6-14.6); WHITE BLOOD COUNT 10.5 x1000/uL (4.5-11.0)
[2024-11-27 04:16] LABS: CARBON DIOXIDE 26 mEq/L (21-32); CHLORIDE 107 mEq/L (98-107); POTASSIUM 3.1 mEq/L (3.5-5.1); SODIUM 144 mEq/L (136-145)
[2024-11-27 04:17] LABS: CALCIUM 10.3 mg/dL (8.7-10.4)
[2024-11-27 04:21] LABS: CREATININE 1.1 mg/dL (0.6-1.3)
[2024-11-27 04:22] LABS: TRIGLYCERIDE 182 mg/dL (0-150); UREA NITROGEN BLOOD 22 mg/dL (9-23)
[2024-11-27 04:23] LABS: LDL CHOLESTEROL 128 mg/dL (5-100)
[2024-11-27 04:24] LABS: CHOLESTEROL 216 mg/dL (<200); CREATINE KINASE 241 IU/L (46-171); HDL CHOLESTEROL 60 mg/dL (>55)
[2024-11-27 04:26] LABS: GLUCOSE 116 mg/dL (70-105); T4 FREE 1.21 ng/dL (0.89-1.76)
[2024-11-27 05:45] VITALS: BP 104/90; PULSE 74; RESP 16; TEMP 36.3918; O2SAT 99
[2024-11-27 08:22] VITALS: BP 104/90; PULSE 74; RESP 16; TEMP 36.8072
[2024-11-27] MEDS: FAMOTIDINE 20MG TABLET PO SCH (09:00)
[2024-11-27] MEDS: ASCORBIC ACID 250 MG TABLET PO SCH (09:00)
[2024-11-27] MEDS: INSULIN LISPRO 100 UNITS/ML SUBCUT SCH ×2 (09:06→18:05)
[2024-11-27] MEDS: BLOOD SUGAR DIAGNOSTIC STRIP TEST SCH (09:13)
[2024-11-27] MEDS: SODIUM CHL 0.9% + KCL 20MEQ/L 1,000 ML IV SCH (09:30)
[2024-11-27] MEDS: INSULIN GLARGINE 100 UNITS/ML SUBCUT SCH (09:35)
[2024-11-27] MEDS: TAMSULOSIN HCL 0.4MG SR CAPSULE PO SCH (09:38)
[2024-11-27] MEDS: FOLIC ACID 1MG TABLET PO SCH (09:42)
[2024-11-27] MEDS: FINASTERIDE 5MG TABLET PO SCH (09:43)
[2024-11-27] MEDS: GABAPENTIN 100MG CAPSULE PO SCH (09:43)
[2024-11-27] MEDS: QUETIAPINE FUMARATE 25MG TABLET PO SCH (09:44)
[2024-11-27] MEDS: THIAMINE HCL 100MG TABLET PO SCH (09:44)
[2024-11-27 12:00] VITALS: BP 82/40; PULSE 74; RESP 16; TEMP 36.28068; O2SAT 99
[2024-11-27] MEDS ORDERED: HYDR-4001 PO (14:52)
[2024-11-27] MEDS ORDERED: MEMA5TAB16 MT (14:52)
[2024-11-27] MEDS ORDERED: GABA-529 MT (14:52)
[2024-11-27] MEDS ORDERED: CLON0.1T PO (14:52)
[2024-11-27] MEDS ORDERED: ACET-3800 PO (14:52)
[2024-11-27] MEDS ORDERED: DOCU-422 MT (14:52)
[2024-11-27] MEDS ORDERED: INSU100I28 SQ ×2 (14:57)
[2024-11-27] MEDS ORDERED: INSU100V43 SQ (14:57)
[2024-11-27] MEDS ORDERED: ACET-2708 MT (14:57)
[2024-11-27 16:00] VITALS: BP 100/54; PULSE 72; RESP 18; TEMP 36.22512; O2SAT 97
[2024-11-27] MEDS: RIVAROXABAN 20 MG TABLET PO SCH (18:09)
[2024-11-27 19:02] LABS: CHLORIDE 107 mEq/L (98-107); POTASSIUM 3.7 mEq/L (3.5-5.1); SODIUM 137 mEq/L (136-145)
[2024-11-27 19:03] LABS: CARBON DIOXIDE 22 mEq/L (21-32)
[2024-11-27 19:11] LABS: CREATINE KINASE 192 IU/L (46-171)
[2024-11-28] MEDS: ATORVASTATIN CALCIUM 10MG TABLET PO SCH (01:19)
[2024-11-28] MEDS: CEFTRIAXONE 1GM/50ML 50 ML IV SCH (01:19)
[2024-11-28 07:10] LABS: CHLORIDE 109 mEq/L (98-107); POTASSIUM 3.8 mEq/L (3.5-5.1); SODIUM 140 mEq/L (136-145)
[2024-11-28 07:11] LABS: CALCIUM 8.1 mg/dL (8.7-10.4); CARBON DIOXIDE 25 mEq/L (21-32)
[2024-11-28 07:16] LABS: CREATININE 0.9 mg/dL (0.6-1.3); GLUCOSE 250 mg/dL (70-105); UREA NITROGEN BLOOD 14 mg/dL (9-23)
[2024-11-28 08:00] VITALS: BP 119/66; PULSE 75; RESP 18; TEMP 36.6; O2SAT 98
[2024-11-28] MEDS: INSULIN GLARGINE 100 UNITS/ML SUBCUT SCH (08:43)
[2024-11-28 12:00] VITALS: BP 106/43; PULSE 82; RESP 18; TEMP 36.5; O2SAT 100
[2024-11-28] MEDS ORDERED: INSU100I81 SQ (14:36)
[2024-11-28] MEDS ORDERED: INSU100V43 SQ (14:36)
[2024-11-29] VITALS: BP 92/43; PULSE 113; RESP 18; TEMP 36.4; O2SAT 95
[2024-11-29 04:00] VITALS: BP 94/58; PULSE 80; RESP 18; TEMP 36.2; O2SAT 96
[2024-11-29 07:14] LABS: CARBON DIOXIDE 24 mEq/L (21-32); CHLORIDE 111 mEq/L (98-107); POTASSIUM 3.9 mEq/L (3.5-5.1); SODIUM 142 mEq/L (136-145)
[2024-11-29 07:15] LABS: CALCIUM 8.9 mg/dL (8.7-10.4)
[2024-11-29 07:19] LABS: CREATININE 0.8 mg/dL (0.6-1.3)
[2024-11-29 07:20] LABS: GLUCOSE 144 mg/dL (70-105); UREA NITROGEN BLOOD 11 mg/dL (9-23)
[2024-11-29 08:00] VITALS: BP 110/60; PULSE 78; RESP 19; TEMP 36.7; O2SAT 98
[2024-11-29 12:00] VITALS: BP 100/67; PULSE 77; RESP 17; TEMP 36.6; O2SAT 96
[2024-11-29 16:00] VITALS: BP 112/61; RESP 18; TEMP 36.6; O2SAT 95
[2024-11-29 17:53] VITALS: BP 121/60; PULSE 77; TEMP 97.8; O2SAT 95
== END 2024-11-29 18:35 | DRG 91 ==
LOC: ER 15:32 → 5WST 21:35
PROVIDERS: ADMIT Internal Medicine; ATTEND Internal Medicine
DX: G92.8 Other toxic encephalopathy (principal); E11.00 Type 2 diabetes mellitus with hyperosmolarity without nonketotic hyperglycemic-hyperosmolar coma (NKHHC); G82.50 Quadriplegia, unspecified; N17.9 Acute kidney failure, unspecified; M48.56XA Collapsed vertebra, not elsewhere classified, lumbar region, initial encounter for fracture; E78.5 Hyperlipidemia, unspecified; F02.80 Dementia in other diseases classified elsewhere, unspecified severity, without behavioral disturbance, psychotic disturbance, mood disturbance, and anxiety; I50.9 Heart failure, unspecified; N20.0 Calculus of kidney; G89.29 Other chronic pain; I48.0 Paroxysmal atrial fibrillation; N40.0 Benign prostatic hyperplasia without lower urinary tract symptoms; E86.0 Dehydration; M25.562 Pain in left knee; K21.9 Gastro-esophageal reflux disease without esophagitis; M25.561 Pain in right knee; E03.9 Hypothyroidism, unspecified; G20.A1 Parkinson's disease without dyskinesia, without mention of fluctuations; Z79.01 Long term (current) use of anticoagulants; Z79.4 Long term (current) use of insulin
CPT/HCPCS: 36415; 71045; 74176; 76700; 80048; 80051; 80053; 80061; 81003; 82010; 82550; 82962; 83036; 83605; 83930; 84145; 84439; 84443; 85025; 99285; A4606; J0696; J1630; J1815; J3480; J7030

== ENCOUNTER 2025-05-23 17:23 | Inpatient (IN) | payer MEDICARE, MEDICAID ==
[~2025-05-23] VITALS: Ht 162.6 cm; Wt 67.2 kg
[~2025-05-23 17:23] MED LIST changes: +ACET-2708 MT; +ACET-3800 PO; -ASCO-494 PO; +CLON0.1T PO; +DOCU-422 MT; +GABA-529 MT; -GABA-529 PO; +HYDR-4001 PO; -INSLIS SUBCUT; +INSU100I28 SQ; +INSU100I81 SQ; +INSU100V43 SQ; -LANTUSUD SUBCUT; +MEMA5TAB16 MT; -SENN-362 PO; -TAMS-11 PO; +TAMS-54 PO; -THIA100T72 PO
[2025-05-23 18:24] LABS: BASOPHILS % 0.9 % (0.0-2.0); EOSINOPHILS % 1.9 % (0.0-5.0); HEMATOCRIT. 38.8 % (42.0-52.0); HEMOGLOBIN. 13.4 g/dL (14.0-18.0); LYMPHOCYTES % 23.7 % (20.0-50.0); MEAN PLATELET VOLUME 8.3 fl (7.4-10.4); MONOCYTES % 9.2 % (2.0-8.0); NEUTROPHILS % 64.3 % (40.0-76.0); PLATELET 239 x1000/uL (130-400); RED BLOOD CELL COUNT 4.05 mill/uL (4.7-6.1); RED CELL DISTRIBUTION WIDTH 13.1 % (11.6-14.6)
[2025-05-23 18:41] LABS: CREATININE 1.2 mg/dL (0.6-1.3); ETHANOL BLOOD < 10 mg/dL (<10); UREA NITROGEN BLOOD 12 mg/dL (9-23)
[2025-05-23 18:43] LABS: ASPARTATE AMINOTRANSFERASE 14 IU/L (<34); BILIRUBIN DIRECT 0.2 mg/dL (<=3.0); BILIRUBIN TOTAL 0.7 mg/dL (0.1-1.0); PROTEIN TOTAL 6.6 g/dL (6.0-8.3); TROPONIN I HIGH SENSITIVITY 5 ng/L (3.0-53)
[2025-05-23] MEDS ORDERED: DILTIAZEM HCL 5MG/ML 5ML VIAL IV ONE (19:00)
[2025-05-23] MEDS: SODIUM CHLORIDE 0.9% 1,000 ML IV ONE (19:00)
[2025-05-23 19:26] LABS: INR 0.9
[2025-05-23] MEDS ORDERED: ONDANSETRON HCL 4MG/2ML INJ IV PRN (19:45)
[2025-05-23] MEDS ORDERED: GUAIFENESIN 200MG/10ML SUGAR FREE UDC PO PRN (19:45)
[2025-05-23] MEDS ORDERED: CLONIDINE 0.1MG TABLET PO PRN (19:45)
[2025-05-23] MEDS ORDERED: ACETAMINOPHEN 325MG TABLET PO PRN (19:45)
[2025-05-23] MEDS ORDERED: DOCUSATE SODIUM 100MG CAPSULE PO PRN (19:45)
[2025-05-23] MEDS ORDERED: IPRATROPIUM/ALBUTEROL 0.5-3(2.5)MG/3ML NEB HHN PRN (19:45)
[2025-05-23] MEDS ORDERED: DEXTROSE 50% WATER 50ML SYRINGE IV PRN (19:45)
[2025-05-23] MEDS: ACETAMINOPHEN 325MG TABLET PO ONE (19:57)
[2025-05-23] MEDS: INSULIN REGULAR (HUMULIN R) 1000UNITS/10ML VIAL SUBCUT ONE (19:58)
[2025-05-23] MEDS: FUROSEMIDE 40MG TABLET PO SCH (20:45)
[2025-05-23 20:46] LABS: BG BASE EXCESS -0.5 mmol/L (-2.0-3.0); BG CARBOXYHEMOGLOBIN 0.7 % (0.5-1.5); BG DEOXYHEMOGLOBIN 3.4 % (0.0-5.0); BG FRACTION INSPIRED OXYGEN 21; BG HCO3 ACT 23.3 mmol/L (21.0-28.0); BG METHEMOGLOBIN 0.3 % (0.5-1.5); BG OXYGEN SATURATION 96.6 % (94.0-98.0); BG OXYHEMOGLOBIN 95.6 % (94.0-98.0); BG PCO2 35.6 mmHg (35.0-48.0); BG PH 7.433 (7.350-7.450); BG PO2 79.1 mmHg (83.0-108.0); BG SAMPLE SITE LEFT RADIAL; BG TOTAL HEMOGLOBIN 14.4 g/dL (13.5-17.5); BG VENT MODE ROOM AIR
[2025-05-23] MEDS: BLOOD SUGAR DIAGNOSTIC STRIP TEST SCH (21:00)
[2025-05-23] MEDS: ATORVASTATIN CALCIUM 10MG TABLET PO SCH (23:57)
[2025-05-23] MEDS: BENZTROPINE MESYLATE 0.5MG TABLET PO SCH (23:58)
[2025-05-23] MEDS: GABAPENTIN 100MG CAPSULE PO SCH (23:58)
[2025-05-23] MEDS: QUETIAPINE FUMARATE 25MG TABLET PO SCH (23:58)
[2025-05-23] MEDS: MEMANTINE HCL 5MG TABLET PO SCH (23:58)
[2025-05-24] MEDS: INSULIN LISPRO 100 UNITS/ML SUBCUT SCH ×2 (00:22→06:18)
[2025-05-24] MEDS: INSULIN GLARGINE 100 UNITS/ML SUBCUT SCH (00:27)
[2025-05-24] MEDS: SODIUM CHLORIDE 0.9% 1,000 ML IV SCH (00:35)
[2025-05-24 03:32] LABS: CREATININE 1.0 mg/dL (0.6-1.3); UREA NITROGEN BLOOD 13 mg/dL (9-23)
[2025-05-24 04:00] VITALS: BP 106/67; PULSE 75; RESP 18; TEMP 36.3; O2SAT 98
[2025-05-24 04:47] LABS: CLARITY URINE CLEAR (CLEAR); COLOR URINE YELLOW (YELLOW); GLUCOSE URINE 3+ (NEGATIVE); KETONES URINE 1+ (NEGATIVE); LEUKOCYTE ESTERASE URINE NEGATIVE (NEGATIVE); NITRITE URINE NEGATIVE (NEGATIVE); OCCULT BLOOD URINE NEGATIVE (NEGATIVE); PH URINE 6.5 (4.5-8.0); PROTEIN URINE NEGATIVE (NEGATIVE); SPECIFIC GRAVITY URINE 1.038 (1.005-1.030); UROBILINOGEN URINE 0.2 E.U./dL (0.2-1.0)
[2025-05-24 05:41] LABS: *AMPHETAMINES SCREEN URINE NEGATIVE (NEGATIVE)
[2025-05-24 05:42] LABS: *BARBITURATES SCREEN URINE NEGATIVE (NEGATIVE); *BENZODIAZEPINES SCREEN URINE NEGATIVE (NEGATIVE); *COCAINE SCREEN URINE NEGATIVE (NEGATIVE); CANNABINOID URINE SCREEN NEGATIVE (NEGATIVE); ECSTASY MDMA SCREEN URINE NEGATIVE (NEGATIVE); METHADONE URINE SCREEN NEGATIVE (NEGATIVE); OPIATES URINE SCREEN NEGATIVE (NEGATIVE); PHENCYCLIDINE URINE SCREEN NEGATIVE (NEGATIVE)
[2025-05-24] MEDS: PANTOPRAZOLE 40MG DR TABLET PO SCH (06:18)
[2025-05-24 06:31] LABS: BACTERIA URINE NONE SEEN; RBC URINE NONE SEEN /hpf (0-2); SQUAMOUS EPITHELIAL CELL URINE FEW /lpf (RARE/1+); WBC URINE 0-2 /hpf (0-2); YEAST URINE 1+
[2025-05-24 06:54] LABS: BASOPHILS % 0.7 % (0.0-2.0); EOSINOPHILS % 3.8 % (0.0-5.0); HEMATOCRIT. 36.7 % (42.0-52.0); HEMOGLOBIN. 13.1 g/dL (14.0-18.0); LYMPHOCYTES % 36.7 % (20.0-50.0); MEAN PLATELET VOLUME 8.2 fl (7.4-10.4); MONOCYTES % 9.9 % (2.0-8.0); NEUTROPHILS % 48.9 % (40.0-76.0); PLATELET 223 x1000/uL (130-400); RED BLOOD CELL COUNT 3.90 mill/uL (4.7-6.1); RED CELL DISTRIBUTION WIDTH 13.3 % (11.6-14.6)
[2025-05-24 06:59] LABS: CREATININE 0.9 mg/dL (0.6-1.3); UREA NITROGEN BLOOD 15 mg/dL (9-23)
[2025-05-24 07:03] LABS: T4 FREE 1.01 ng/dL (0.89-1.76)
[2025-05-24 08:00] VITALS: BP 107/58; PULSE 67; RESP 18; TEMP 36.1; O2SAT 100
[2025-05-24] MEDS: FINASTERIDE 5MG TABLET PO SCH (08:49)
[2025-05-24] MEDS: FOLIC ACID 1MG TABLET PO SCH (08:49)
[2025-05-24] MEDS: TAMSULOSIN HCL 0.4MG SR CAPSULE PO SCH (08:51)
[2025-05-24] MEDS: SODIUM CHLORIDE 0.9% 1,000 ML IV ONE (09:38)
[2025-05-24] MEDS: SODIUM CHLORIDE 0.9% 500 ML IV SCH (10:48)
[2025-05-24 10:57] LABS: CREATININE 0.8 mg/dL (0.6-1.3); UREA NITROGEN BLOOD 13 mg/dL (9-23)
[2025-05-24 12:00] VITALS: BP 93/58; PULSE 73; RESP 18; TEMP 36.2; O2SAT 96
[2025-05-24 16:00] VITALS: BP 110/66; PULSE 86; RESP 18; TEMP 36.2; O2SAT 96
[2025-05-24] MEDS: RIVAROXABAN 20 MG TABLET PO SCH (17:07)
[2025-05-24] MEDS ORDERED: QUET200T30 PO (17:20)
[2025-05-24] MEDS ORDERED: LORA-250 PO (17:20)
[2025-05-25 04:00] VITALS: BP 108/55; PULSE 90; RESP 18; TEMP 36.4; O2SAT 95
[2025-05-25 08:00] VITALS: BP 125/60; PULSE 76; RESP 18; TEMP 36.3
[2025-05-25] MEDS: INSULIN GLARGINE 100 UNITS/ML SUBCUT SCH (09:16)
[2025-05-25 12:00] VITALS: BP 111/70; PULSE 78; RESP 18; TEMP 36.4; O2SAT 99
[2025-05-25] MEDS: INSULIN LISPRO 100 UNITS/ML SUBCUT SCH (14:46)
[2025-05-25 16:00] VITALS: BP 100/54; PULSE 79; RESP 18; TEMP 36.1; O2SAT 98
[2025-05-25] MEDS: RIVAROXABAN 15 MG TABLET PO SCH (18:13)
[2025-05-25 20:00] VITALS: BP 124/69; PULSE 48; RESP 18; TEMP 36.7; O2SAT 98
[2025-05-26] VITALS: BP 106/58; PULSE 70; RESP 18; TEMP 36.6; O2SAT 96
[2025-05-26 04:00] VITALS: BP 103/60; PULSE 70; RESP 19; TEMP 35.9; O2SAT 97
[2025-05-26 08:00] VITALS: BP_SYST 125; BP_SYST 135; BP_DIAS 66; PULSE 90; RESP 17; TEMP 35.9; O2SAT 96
[2025-05-26] MEDS: INSULIN GLARGINE 100 UNITS/ML SUBCUT SCH (09:21)
[2025-05-26 09:29] VITALS: BP 125/66; PULSE 90; TEMP 96.6; O2SAT 96
[2025-05-26 09:48] VITALS: BP 125/66; PULSE 90; TEMP 96.6; O2SAT 96
== END 2025-05-26 11:00 | DRG 637 ==
LOC: ER 17:23 → EDBEDREQ 17:53 → EDBEDREQTM 19:03 → ENRESERV 19:32 → 5WST 20:54
PROVIDERS: ADMIT Internal Medicine; ATTEND Internal Medicine
DX: E11.65 Type 2 diabetes mellitus with hyperglycemia (principal); G92.8 Other toxic encephalopathy; I48.19 Other persistent atrial fibrillation; M48.56XA Collapsed vertebra, not elsewhere classified, lumbar region, initial encounter for fracture; E87.1 Hypo-osmolality and hyponatremia; E86.0 Dehydration; R62.7 Adult failure to thrive; E03.9 Hypothyroidism, unspecified; E11.22 Type 2 diabetes mellitus with diabetic chronic kidney disease; F03.90 Unspecified dementia, unspecified severity, without behavioral disturbance, psychotic disturbance, mood disturbance, and anxiety; I50.9 Heart failure, unspecified; N18.9 Chronic kidney disease, unspecified; N40.0 Benign prostatic hyperplasia without lower urinary tract symptoms; K21.9 Gastro-esophageal reflux disease without esophagitis; G89.29 Other chronic pain; M54.9 Dorsalgia, unspecified; D53.9 Nutritional anemia, unspecified; Z68.25 Body mass index [BMI] 25.0-25.9, adult; Z79.4 Long term (current) use of insulin; Z79.899 Other long term (current) drug therapy; Z99.3 Dependence on wheelchair
CPT/HCPCS: 36415; 36600; 71045; 73030; 80048; 80076; 80305; 80320; 81003; 82010; 82140; 82375; 82550; 82728; 82805; 82962; 83036; 83540; 83550; 83605; 83735; 83880; 83930; 83935; 84145; 84439; 84443; 84484; 85025; 93005; 93970; 97162; 97166; 99285; J1815; J7030; G0480

== ENCOUNTER 2025-05-29 18:53 | Emergency (ER) | payer MEDICARE, MEDICAID ==
[~2025-05-29] VITALS: Ht 172.7 cm; Wt 73.0 kg
[~2025-05-29 18:53] MED LIST changes: -ACET-2708 MT; -ACET-3800 PO; -HYDR-4001 PO; -INSU100I81 SQ; +QUET200T30 PO; -QUET25TA PO
[2025-05-29 19:12] VITALS: O2SAT 95
[2025-05-29] MEDS: ACETAMINOPHEN 325MG TABLET PO ONE (21:17)
[2025-05-29] MEDS: TETANUS, DIPHTHERIA, PERTUSSIS VAC/PF 0.5ML (>10YR OLD) IM ONE (21:18)
[2025-05-29] MEDS ORDERED: BO1 TP (23:26)
[2025-05-30 00:54] VITALS: BP 121/62; PULSE 65; RESP 16; TEMP 36.6; O2SAT 99
== END 2025-05-30 01:14 | disposition home or self-care (01) ==
LOC: ER 18:53
DX: S81.811A Laceration without foreign body, right lower leg, initial encounter (principal); S80.11XA Contusion of right lower leg, initial encounter; I48.91 Unspecified atrial fibrillation; I11.0 Hypertensive heart disease with heart failure; I50.9 Heart failure, unspecified; F20.9 Schizophrenia, unspecified; F03.90 Unspecified dementia, unspecified severity, without behavioral disturbance, psychotic disturbance, mood disturbance, and anxiety; E11.9 Type 2 diabetes mellitus without complications; Z79.899 Other long term (current) drug therapy; Z79.01 Long term (current) use of anticoagulants; N40.0 Benign prostatic hyperplasia without lower urinary tract symptoms; Z88.6 Allergy status to analgesic agent; X58.XXXA Exposure to other specified factors, initial encounter; Y93.89 Activity, other specified; Y92.89 Other specified places as the place of occurrence of the external cause; Y99.8 Other external cause status
CPT/HCPCS: 12002; 73590; 90715; 99283